=== PATIENT | male | born 1980 | race Two or more races ===

== ENCOUNTER 2019-07-18 03:05 | Inpatient (IN) | payer MEDICAID ==
[~2019-07-18] VITALS: Ht 177.8 cm; Wt 102.4 kg
[2019-07-18] MEDS ORDERED: LORazepam 2 MG/ML VIAL IVP ONE (03:45)
[2019-07-18] MEDS ORDERED: SODIUM CHLORIDE 0.9% 1,000 ML IV ONE ×3 (03:45→06:00)
[2019-07-18] MEDS ORDERED: ETOMIDATE 2 MG/ML 10 ML VIAL IVP ONE (04:00)
[2019-07-18] MEDS ORDERED: SUCCINYLCHOLINE CHLORIDE 20 MG/ML 10 ML VIAL IVP ONE (04:00)
[2019-07-18] MEDS ORDERED: PROPOFOL 1000 MG/ISO-OSM 100 ML IV PRN (04:14)
[2019-07-18 04:18] LABS: BASOPHILS % (AUTO) 0.6 % (0.0-2.0); EOSINOPHILS % (AUTO) 1.2 % (1.0-6.0); HEMATOCRIT 53.1 % (41-53); HEMOGLOBIN 17.1 g/dL (13.5-17.5); LYMPHOCYTES # (AUTO) 8.5 K/uL (1.0-4.8); LYMPHOCYTES % (AUTO) 56.5 % (22.0-44.0); MEAN CORPUSCULAR HEMOGLOBIN 32.3 pg (26.0-34.0); MEAN CORPUSCULAR HGB CONC 32.3 G/dL (31.0-37.0); MEAN CORPUSCULAR VOLUME 100 fL (80-100); MONOCYTES # (AUTO) 0.4 K/uL (0.1-1.0); MONOCYTES % (AUTO) 2.3 % (2.0-9.0); NEUTROPHILS # (AUTO) 5.9 K/uL (1.8-7.7); NEUTROPHILS % (AUTO) 39.4 % (40.0-70.0); PLATELET COUNT (AUTO) 270 K/uL (150-450); RED BLOOD CELL COUNT(AUTO) 5.31 MIL/uL (4.50-5.90); RED CELL DISTRIBUTION WIDTH 14.8 % (11.5-14.5)
[2019-07-18 04:56] LABS: APPEARANCE,URINE CLEAR (CLEAR); BILIRUBIN,URINE NEGATIVE (NEGATIVE); GLUCOSE, URINE (UA) NEGATIVE (NEGATIVE); KETONES,URINE NEGATIVE (NEGATIVE); LEUKOCYTE ESTERASE ,URINE NEGATIVE (NEGATIVE); NITRATE,URINE NEGATIVE (NEGATIVE); OCCULT BLOOD,URINE TRACE (NEGATIVE); PH,URINE 5.5 (5.0-8.0); PROTEIN,URINE SEE CONFIRM (NEGATIVE)
[2019-07-18 05:02] LABS: AMPHET/METH SCREEN,URINE POSITIVE (NEGATIVE); BARBITURATE SCREEN, URINE NEGATIVE (NEGATIVE); BENZODIAZEPINES SCREEN,URINE NEGATIVE (NEGATIVE); CANNABINOID SCREEN,URINE NEGATIVE (NEGATIVE); COCAINE SCREEN,URINE NEGATIVE (NEGATIVE); METHADONE SCREEN, URINE NEGATIVE (NEGATIVE); OPIATE SCREEN,URINE POSITIVE (NEGATIVE)
[2019-07-18 05:05] LABS: PHENCYCLIDINE SCREEN,URINE NEGATIVE (NEGATIVE)
[2019-07-18] MEDS ORDERED: ONDANSETRON HCL 4 MG TABLET PO ONE (05:15)
[2019-07-18] MEDS ORDERED: FAMOTIDINE 20 MG TABLET PO ONE (05:15)
[2019-07-18 05:18] LABS: ABG A-A DIFF O2 511.9 mmHg (10-20.0); ABG CARBOXYHEMOGLOBIN 1.6 % (0.0-1.5); ABG HCO3 18.2 mmol/L (22.0-26.0); ABG METHEMOGLOBIN 0.4 % (0.0-1.5); ABG OXYGEN CONTENT 24.9 mL/dL (15.0-23.0); ABG OXYGEN SATURATION 98.2 % (95.0-98.0); ABG OXYHEMOGLOBIN 96.2 % (94.0-100.0); ABG PCO2 58 mmHg (35-45); ABG PH 7.181 (7.350-7.450); ABG TOTAL HEMOGLOBIN 18.3 G/dL (12.0-18.0); PO2, ARTERIAL BG 142.8 mmHg (92.0-100.0); SITE, BLOOD GAS RT RADIAL; SOURCE, BLOOD GAS ARTERIAL; TEMPERATURE, FAHRENHEIT, BG 98.6 FAHREN (96.0-98.6)
[2019-07-18 05:19] LABS: O2 DEVICE,BLOOD GAS VENTILATOR (ROOM AIR); PEEP,BG 5 cm H2O
[2019-07-18 05:23] LABS: SULFOSALICYLIC ACID,URINE Trace (Negative)
[2019-07-18 05:25] LABS: BACTERIA,URINE Few /HPF (None Seen); RBC,URINE 0-2 /HPF (0-2); SQUAMOUS EPITHELIAL CELL,UR Few /LPF (None Seen); WBC,URINE 0-2 /HPF (0-5)
[2019-07-18 06:12] LABS: INR 1.1 (0.9-1.1)
[2019-07-18 06:19] LABS: ANION GAP 6 mmol/L (8-16); CALCIUM, TOTAL 8.7 mg/dL (8.8-10.5); CARBON DIOXIDE 30 mmol/L (22-29); CHLORIDE 103 mmol/L (98-107); CREATININE 1.64 mg/dL (0.60-1.30); GLOMERULAR FILTR. RATE CALC 48 mL/min (>60); GLUCOSE,RANDOM 93 mg/dL (70-110); POTASSIUM 5.3 mmol/L (3.5-5.1); SODIUM SERUM 139 mmol/L (136-145); UREA NITROGEN, BLOOD 27 mg/dL (7-18)
[2019-07-18 06:39] LABS: ALANINE AMINOTRANSFERASE 215 U/L (12-78); ALBUMIN 4.1 g/dL (3.4-5.0); ALKALINE PHOSPHATASE 81 U/L (46-116); ASPARTATE AMINOTRANSFERASE 145 U/L (15-37); BILIRUBIN,TOTAL 0.9 mg/dL (0.1-1.0); CREATINE KINASE, TOTAL ONLY 433 U/L (39-308); LIPASE 39 U/L (73-393); TOTAL PROTEIN, SERUM 8.2 g/dL (6.4-8.2)
[2019-07-18 06:41] LABS: ACETAMINOPHEN < 2 mcg/mL (10-30)
[2019-07-18 08:30] VITALS: BP 85/58
[2019-07-18 09:00] VITALS: BP 91/64
[2019-07-18] MEDS ORDERED: NOREPINEPHRINE 4 MG/D5%-WATER 250 ML IV PRN (09:00)
[2019-07-18] MEDS: SODIUM CHLORIDE 0.9% 1,000 ML IV SCH ×2 (09:56→21:15)
[2019-07-18] MEDS: OXYGEN THERAPY IH SCH ×2 (09:56→21:16)
[2019-07-18 10:36] LABS: SALICYLATE 0.7 mg/dL (2.8-20.0)
[2019-07-18 10:41] LABS: LACTIC ACID 1.2 mmol/L (0.4-2.0)
[2019-07-18] MEDS: FentaNYL CITRATE PF 500 MCG in DEXTROSE 5%-WATER 90 ML IV PRN ×3 (10:57→22:40)
[2019-07-18] MEDS ORDERED: ZOLPIDEM TARTRATE 5 MG TABLET PO PRN (11:30)
[2019-07-18] MEDS ORDERED: ONDANSETRON HCL 4 MG/2 ML VIAL IVP PRN (11:30)
[2019-07-18] MEDS ORDERED: BISACODYL 10 MG RECTAL RECTAL SUPPOSITORY PR PRN (11:30)
[2019-07-18] MEDS ORDERED: MAGNESIUM HYDROXIDE SUSPENSION 30 ML UDCUP PO PRN (11:30)
[2019-07-18] MEDS ORDERED: SODIUM BICARBONATE 50 MEQ/50 ML VIAL IVP ONE (11:45)
[2019-07-18 12:00] VITALS: BP 109/39
[2019-07-18] MEDS ORDERED: GLYCOPYRROLATE 0.2 MG/ML VIAL ONE (12:00)
[2019-07-18] MEDS ORDERED: LIDOCAINE 2% 5 ML JELLY ONE (12:00)
[2019-07-18] MEDS ORDERED: SODIUM BICARBONATE [ADULT] 8.4% 50 MEQ/50 ML SYRINGE IVP ONE ×2 (12:08→12:15)
[2019-07-18] MEDS: PROPOFOL 1000 MG/ISO-OSM 100 ML IV PRN ×6 (12:42→23:01)
[2019-07-18 13:41] LABS: ABG A-A DIFF O2 542.1 mmHg (10-20.0); ABG CARBOXYHEMOGLOBIN 0.8 % (0.0-1.5); ABG HCO3 19.1 mmol/L (22.0-26.0); ABG OXYGEN CONTENT 22.7 mL/dL (15.0-23.0); ABG OXYGEN SATURATION 96.8 % (95.0-98.0); ABG PH 7.152 (7.350-7.450); ABG TOTAL HEMOGLOBIN 16.8 G/dL (12.0-18.0); PO2, ARTERIAL BG 99.1 mmHg (92.0-100.0); SOURCE, BLOOD GAS ARTERIAL; TEMPERATURE, FAHRENHEIT, BG 100.1 FAHREN (96.0-98.6)
[2019-07-18 13:42] LABS: ABG PCO2 70 mmHg (35-45); O2 DEVICE,BLOOD GAS VENTILATOR (ROOM AIR); PEEP,BG 5 cm H2O; SITE, BLOOD GAS RT RADIAL; VT, ABG 550 ml
[2019-07-18] MEDS ORDERED: SODIUM CHLORIDE 0.9% 500 ML IV ONE (14:58)
[2019-07-18] MEDS: MIDAZOLAM HCL 100 MG in DEXTROSE 5%-WATER 180 ML IV PRN ×3 (15:45→16:52)
[2019-07-18 16:00] VITALS: BP 122/37
[2019-07-18] MEDS ORDERED: SUCCINYLCHOLINE CHLORIDE 20 MG/ML 10 ML VIAL IM ONE (16:39)
[2019-07-18] MEDS ORDERED: ETOMIDATE 2 MG/ML 10 ML VIAL IV ONE (16:39)
[2019-07-18] MEDS: PIPERACILLIN/TAZO 3.375 GM/D5W 50 ML IV SCH ×2 (16:43→21:15)
[2019-07-18] MEDS: HEPARIN SODIUM,PORCINE 5,000 UNITS/ML VIAL SQ SCH ×2 (16:45→23:01)
[2019-07-18 17:36] LABS: ABG A-A DIFF O2 577.7 mmHg (10-20.0); ABG BASE EXCESS -5.4 mmol/L (-2.0-3.0); ABG CARBOXYHEMOGLOBIN 0.9 % (0.0-1.5); ABG METHEMOGLOBIN 0.3 % (0.0-1.5); ABG OXYGEN CONTENT 21.3 mL/dL (15.0-23.0); ABG OXYGEN SATURATION 93.6 % (95.0-98.0); ABG OXYHEMOGLOBIN 92.5 % (94.0-100.0); ABG PH 7.174 (7.350-7.450); ABG TOTAL HEMOGLOBIN 16.4 G/dL (12.0-18.0); SOURCE, BLOOD GAS ARTERIAL; TEMPERATURE, FAHRENHEIT, BG 99.3 FAHREN (96.0-98.6)
[2019-07-18 17:37] LABS: ABG PCO2 64 mmHg (35-45); O2 DEVICE,BLOOD GAS VENTILATOR (ROOM AIR); PEEP,BG 5 cm H2O; SITE, BLOOD GAS ARTERIAL LINE; VT, ABG 550 ml
[2019-07-18 17:38] LABS: SPONTANEOUS VT, BG 581 ml
[2019-07-18] MEDS ORDERED: SODIUM CHLORIDE 0.9% 250 ML IV ONE (18:00)
[2019-07-18 20:00] VITALS: BP 122/39
[2019-07-18] MEDS: DOCUSATE SODIUM 100 MG CAPSULE PO SCH (21:15)
[2019-07-18] MEDS: ACETAMINOPHEN 325 MG TABLET PO PRN (23:02)
[2019-07-19] VITALS: BP 107/39
[2019-07-19] MEDS: PROPOFOL 1000 MG/ISO-OSM 100 ML IV PRN ×5 (02:43→23:00)
[2019-07-19] MEDS: PIPERACILLIN/TAZO 3.375 GM/D5W 50 ML IV SCH ×4 (03:26→20:24)
[2019-07-19 04:00] VITALS: BP 109/44
[2019-07-19] MEDS: SODIUM CHLORIDE 0.9% 1,000 ML IV SCH (05:54)
[2019-07-19 06:03] LABS: CALCIUM, TOTAL 7.6 mg/dL (8.8-10.5); CREATININE 1.89 mg/dL (0.60-1.30); POTASSIUM 5.2 mmol/L (3.5-5.1)
[2019-07-19 06:26] LABS: BASOPHILS % (AUTO) 0.1 % (0.0-2.0); EOSINOPHILS % (AUTO) 0 % (1.0-6.0); HEMATOCRIT 50.1 % (41-53); HEMOGLOBIN 15.8 g/dL (13.5-17.5); LYMPHOCYTES # (AUTO) 0.8 K/uL (1.0-4.8); LYMPHOCYTES % (AUTO) 8.3 % (22.0-44.0); MEAN CORPUSCULAR HEMOGLOBIN 31.9 pg (26.0-34.0); MEAN CORPUSCULAR HGB CONC 31.6 G/dL (31.0-37.0); MEAN CORPUSCULAR VOLUME 101 fL (80-100); MONOCYTES # (AUTO) 0.7 K/uL (0.1-1.0); MONOCYTES % (AUTO) 7.6 % (2.0-9.0); PLATELET COUNT (AUTO) 187 K/uL (150-450); RED BLOOD CELL COUNT(AUTO) 4.96 MIL/uL (4.50-5.90); RED CELL DISTRIBUTION WIDTH 14.7 % (11.5-14.5)
[2019-07-19] MEDS: FentaNYL CITRATE PF 500 MCG in DEXTROSE 5%-WATER 90 ML IV PRN ×2 (07:06→19:29)
[2019-07-19 08:00] VITALS: BP 131/55
[2019-07-19] MEDS: HEPARIN SODIUM,PORCINE 5,000 UNITS/ML VIAL SQ SCH ×3 (08:33→23:01)
[2019-07-19] MEDS: PANTOPRAZOLE SODIUM 40 MG DR TABLET PO SCH (08:34)
[2019-07-19] MEDS: ACETAMINOPHEN 325 MG TABLET PO PRN ×3 (08:34→21:24)
[2019-07-19] MEDS: DOCUSATE SODIUM 100 MG CAPSULE PO SCH ×2 (08:34→20:24)
[2019-07-19] MEDS: OXYGEN THERAPY IH SCH ×2 (08:36→20:24)
[2019-07-19 11:15] LABS: ABG A-A DIFF O2 454.1 mmHg (10-20.0); ABG BASE EXCESS -3.1 mmol/L (-2.0-3.0); ABG HCO3 20.3 mmol/L (22.0-26.0); ABG METHEMOGLOBIN 0.3 % (0.0-1.5); ABG OXYGEN CONTENT 21.6 mL/dL (15.0-23.0); ABG OXYGEN SATURATION 97.7 % (95.0-98.0); ABG OXYHEMOGLOBIN 96.4 % (94.0-100.0); ABG TOTAL HEMOGLOBIN 15.9 G/dL (12.0-18.0); PO2, ARTERIAL BG 106.7 mmHg (92.0-100.0); SOURCE, BLOOD GAS ARTERIAL; TEMPERATURE, FAHRENHEIT, BG 100.1 FAHREN (96.0-98.6)
[2019-07-19] MEDS ORDERED: PROPOFOL 1000 MG/ISO-OSM 100 ML IV PRN (11:15)
[2019-07-19 11:18] LABS: ABG PH 7.146 (7.350-7.450)
[2019-07-19 11:19] LABS: ABG PCO2 77 mmHg (35-45); O2 DEVICE,BLOOD GAS VENTILATOR (ROOM AIR); PEEP,BG 10 cm H2O; SITE, BLOOD GAS ARTLINE; VT, ABG 500 ml
[2019-07-19 12:00] VITALS: BP 156/60
[2019-07-19 12:30] LABS: HIV 1-2 SCREEN 4TH GEN W/RFLX Non Reactive (Non Reactive)
[2019-07-19] MEDS ORDERED: SODIUM CHLORIDE 0.9% 1,000 ML IV ONE (12:45)
[2019-07-19 14:35] LABS: ABG A-A DIFF O2 345.2 mmHg (10-20.0); ABG BASE EXCESS -1.3 mmol/L (-2.0-3.0); ABG HCO3 22.6 mmol/L (22.0-26.0); ABG METHEMOGLOBIN 0.3 % (0.0-1.5); ABG OXYGEN CONTENT 20.8 mL/dL (15.0-23.0); ABG OXYGEN SATURATION 97.2 % (95.0-98.0); ABG OXYHEMOGLOBIN 95.9 % (94.0-100.0); ABG PCO2 58 mmHg (35-45); ABG TOTAL HEMOGLOBIN 15.4 G/dL (12.0-18.0); PO2, ARTERIAL BG 90.5 mmHg (92.0-100.0); SOURCE, BLOOD GAS ARTERIAL; TEMPERATURE, FAHRENHEIT, BG 100.1 FAHREN (96.0-98.6)
[2019-07-19 15:58] LABS: ABG PH 7.268 (7.350-7.450); O2 DEVICE,BLOOD GAS VENTILATOR (ROOM AIR); SITE, BLOOD GAS ART LINE
[2019-07-19 15:59] LABS: PEEP,BG 10 cm H2O; VT, ABG 550 ml
[2019-07-19 16:00] VITALS: BP 165/71
[2019-07-19] MEDS ORDERED: DOPamine HCL/D5W 400 MG/250 ML IV BAG IV ONE (16:32)
[2019-07-19] MEDS ORDERED: NALOXONE HCL 1 MG/ML 2 ML SYG IM ONE (16:32)
[2019-07-19] MEDS ORDERED: EPINEPHrine 1:10,000 [1 MG/10 ML] SYRINGE IVP ONE (16:32)
[2019-07-19] MEDS ORDERED: SODIUM BICARBONATE [ADULT] 8.4% 50 MEQ/50 ML SYRINGE IVP ONE (16:32)
[2019-07-19 20:00] VITALS: BP 109/49
[2019-07-19] MEDS ORDERED: SODIUM CHLORIDE 0.9% 500 ML IV ONE (22:57)
[2019-07-20] VITALS: BP 138/59
[2019-07-20] MEDS: PROPOFOL 1000 MG/ISO-OSM 100 ML IV PRN ×6 (02:06→20:44)
[2019-07-20] MEDS: ACETAMINOPHEN 325 MG TABLET PO PRN ×3 (02:13→22:36)
[2019-07-20] MEDS: PIPERACILLIN/TAZO 3.375 GM/D5W 50 ML IV SCH ×4 (02:13→20:44)
[2019-07-20 04:00] VITALS: BP 112/59
[2019-07-20] MEDS: FentaNYL CITRATE PF 500 MCG in DEXTROSE 5%-WATER 90 ML IV PRN ×2 (05:06→15:30)
[2019-07-20 05:22] LABS: BASOPHILS % (AUTO) 0.2 % (0.0-2.0); EOSINOPHILS % (AUTO) 0.1 % (1.0-6.0); HEMATOCRIT 43.2 % (41-53); HEMOGLOBIN 14.1 g/dL (13.5-17.5); LYMPHOCYTES # (AUTO) 1.1 K/uL (1.0-4.8); LYMPHOCYTES % (AUTO) 12.4 % (22.0-44.0); MEAN CORPUSCULAR HGB CONC 32.6 G/dL (31.0-37.0); MEAN CORPUSCULAR VOLUME 98 fL (80-100); MONOCYTES # (AUTO) 0.4 K/uL (0.1-1.0); MONOCYTES % (AUTO) 4.5 % (2.0-9.0); NEUTROPHILS # (AUTO) 7.1 K/uL (1.8-7.7); NEUTROPHILS % (AUTO) 82.8 % (40.0-70.0); PLATELET COUNT (AUTO) 152 K/uL (150-450); RED BLOOD CELL COUNT(AUTO) 4.39 MIL/uL (4.50-5.90)
[2019-07-20 05:26] LABS: ANION GAP 4 mmol/L (8-16); CARBON DIOXIDE 31 mmol/L (22-29); CHLORIDE 106 mmol/L (98-107); CREATININE 1.26 mg/dL (0.60-1.30); GLUCOSE,RANDOM 141 mg/dL (70-110); POTASSIUM 3.5 mmol/L (3.5-5.1); SODIUM SERUM 141 mmol/L (136-145); UREA NITROGEN, BLOOD 32 mg/dL (7-18)
[2019-07-20 05:27] LABS: CALCIUM, TOTAL 8.2 mg/dL (8.8-10.5); GLOMERULAR FILTR. RATE CALC > 60 mL/min (>60)
[2019-07-20 08:00] VITALS: BP 114/63
[2019-07-20] MEDS: OXYGEN THERAPY IH SCH ×2 (08:15→20:45)
[2019-07-20] MEDS: HEPARIN SODIUM,PORCINE 5,000 UNITS/ML VIAL SQ SCH ×2 (08:55→15:54)
[2019-07-20] MEDS: DOCUSATE SODIUM 100 MG CAPSULE PO SCH ×2 (08:56→20:44)
[2019-07-20] MEDS: PANTOPRAZOLE SODIUM 40 MG DR TABLET PO SCH (08:56)
[2019-07-20 10:38] LABS: ABG A-A DIFF O2 178.2 mmHg (10-20.0); ABG BASE EXCESS 6.9 mmol/L (-2.0-3.0); ABG CARBOXYHEMOGLOBIN 0.6 % (0.0-1.5); ABG HCO3 30.1 mmol/L (22.0-26.0); ABG METHEMOGLOBIN 0.3 % (0.0-1.5); ABG OXYGEN CONTENT 19.1 mL/dL (15.0-23.0); ABG OXYGEN SATURATION 97.2 % (95.0-98.0); ABG OXYHEMOGLOBIN 96.3 % (94.0-100.0); ABG PCO2 45 mmHg (35-45); ABG PH 7.452 (7.350-7.450); ABG TOTAL HEMOGLOBIN 14.1 G/dL (12.0-18.0); PO2, ARTERIAL BG 89.9 mmHg (92.0-100.0); SOURCE, BLOOD GAS ARTERIAL; TEMPERATURE, FAHRENHEIT, BG 100.6 FAHREN (96.0-98.6)
[2019-07-20 10:57] LABS: O2 DEVICE,BLOOD GAS VENTILATOR (ROOM AIR); PEEP,BG 10 cm H2O; SITE, BLOOD GAS A LINE; VT, ABG 550 ml
[2019-07-20 10:58] LABS: SPONTANEOUS VT, BG 531 ml
[2019-07-20 12:00] VITALS: BP 113/57
[2019-07-20] MEDS: SODIUM CHLORIDE 0.9% 1,000 ML IV SCH (15:57)
[2019-07-20 16:00] VITALS: BP 129/56
[2019-07-20] MEDS: LEVOFLOXACIN 750 MG/D5% WATER 150 ML IV SCH (17:21)
[2019-07-20 17:42] LABS: ALANINE AMINOTRANSFERASE 124 U/L (12-78); ALBUMIN 2.5 g/dL (3.4-5.0); ALKALINE PHOSPHATASE 55 U/L (46-116); ASPARTATE AMINOTRANSFERASE 121 U/L (15-37); BILIRUBIN,TOTAL 1.1 mg/dL (0.1-1.0); TOTAL PROTEIN, SERUM 6.1 g/dL (6.4-8.2)
[2019-07-20] MEDS: HYPROMELLOSE 0.5% 15 ML OPHTHALMIC SOLUTION OU SCH (19:45)
[2019-07-20 20:00] VITALS: BP 97/54
[2019-07-20] MEDS ORDERED: SODIUM CHLORIDE 0.9% 250 ML IV ONE (20:42)
[2019-07-21] VITALS: BP 115/58
[2019-07-21] MEDS: HEPARIN SODIUM,PORCINE 5,000 UNITS/ML VIAL SQ SCH ×3 (00:10→16:28)
[2019-07-21] MEDS: HYPROMELLOSE 0.5% 15 ML OPHTHALMIC SOLUTION OU SCH ×4 (00:11→18:28)
[2019-07-21 01:09] LABS: INFLUENZA TYPE A NEGATIVE FOR TYPE A (NEGATIVE); INFLUENZA TYPE B NEGATIVE FOR TYPE B (NEGATIVE)
[2019-07-21] MEDS: PROPOFOL 1000 MG/ISO-OSM 100 ML IV PRN ×6 (02:39→21:34)
[2019-07-21] MEDS: FentaNYL CITRATE PF 500 MCG in DEXTROSE 5%-WATER 90 ML IV PRN ×3 (02:40→22:11)
[2019-07-21] MEDS: PIPERACILLIN/TAZO 3.375 GM/D5W 50 ML IV SCH ×2 (02:40→09:08)
[2019-07-21 04:00] VITALS: BP 104/51
[2019-07-21] MEDS: SODIUM CHLORIDE 0.9% 1,000 ML IV SCH ×2 (04:50→18:28)
[2019-07-21 05:18] LABS: HEMATOCRIT 40.4 % (41-53); HEMOGLOBIN 13.4 g/dL (13.5-17.5); MEAN CORPUSCULAR HEMOGLOBIN 32.4 pg (26.0-34.0); MEAN CORPUSCULAR HGB CONC 33.1 G/dL (31.0-37.0); MEAN CORPUSCULAR VOLUME 98 fL (80-100); PLATELET COUNT (AUTO) 166 K/uL (150-450); RED BLOOD CELL COUNT(AUTO) 4.14 MIL/uL (4.50-5.90)
[2019-07-21 05:28] LABS: ANION GAP 7 mmol/L (8-16); CARBON DIOXIDE 31 mmol/L (22-29); CHLORIDE 106 mmol/L (98-107); CREATININE 0.97 mg/dL (0.60-1.30); GLOMERULAR FILTR. RATE CALC > 60 mL/min (>60); GLUCOSE,RANDOM 119 mg/dL (70-110); POTASSIUM 3.2 mmol/L (3.5-5.1); SODIUM SERUM 144 mmol/L (136-145); UREA NITROGEN, BLOOD 28 mg/dL (7-18)
[2019-07-21 06:25] LABS: BAND NEUTROPHILS % (MANUAL) 15 % (0-5); EOSINOPHILS % (MANUAL) 1 % (1-6); LYMPHOCYTES % (MANUAL) 18 % (22-44); MONOCYTES % (MANUAL) 2 % (2-9); SEGMENTED NEUTROPHILS % 64 % (40-70)
[2019-07-21 08:00] VITALS: BP 115/57
[2019-07-21] MEDS: DOCUSATE SODIUM 100 MG CAPSULE PO SCH ×2 (09:08→20:45)
[2019-07-21] MEDS: PANTOPRAZOLE SODIUM 40 MG DR TABLET PO SCH (09:08)
[2019-07-21] MEDS: POTASSIUM CHLORIDE 20 MEQ ER TABLET PO PRN ×2 (09:17→21:56)
[2019-07-21 12:00] VITALS: BP 103/57
[2019-07-21] MEDS: OXYGEN THERAPY IH SCH ×2 (12:21→20:44)
[2019-07-21] MEDS: CEFEPIME HCL 2 GM in DEXTROSE 5%-WATER 50 ML IV SCH ×2 (14:34→21:56)
[2019-07-21 16:00] VITALS: BP 108/54
[2019-07-21] MEDS: MetroNIDAZOLE 500 MG TABLET PO SCH (16:28)
[2019-07-21] MEDS: LEVOFLOXACIN 750 MG/D5% WATER 150 ML IV SCH (16:43)
[2019-07-21 20:00] VITALS: BP 105/57
[2019-07-21] MEDS: ACETAMINOPHEN 325 MG TABLET PO PRN (20:58)
[2019-07-22] VITALS: BP 105/56
[2019-07-22] MEDS: HYPROMELLOSE 0.5% 15 ML OPHTHALMIC SOLUTION OU SCH ×4 (00:14→16:55)
[2019-07-22] MEDS: HEPARIN SODIUM,PORCINE 5,000 UNITS/ML VIAL SQ SCH ×3 (00:15→16:11)
[2019-07-22] MEDS: MetroNIDAZOLE 500 MG TABLET PO SCH ×3 (00:15→16:08)
[2019-07-22] MEDS ORDERED: SODIUM CHLORIDE 0.9% 250 ML IV ONE ×2 (00:19→18:46)
[2019-07-22] MEDS: PROPOFOL 1000 MG/ISO-OSM 100 ML IV PRN ×8 (00:47→22:11)
[2019-07-22] MEDS ORDERED: SODIUM CHLORIDE 0.9% 500 ML IV ONE (02:10)
[2019-07-22] MEDS: FentaNYL CITRATE PF 500 MCG in DEXTROSE 5%-WATER 90 ML IV PRN ×4 (02:58→21:36)
[2019-07-22 04:00] VITALS: BP 102/48
[2019-07-22 05:08] LABS: BASOPHILS % (AUTO) 0.5 % (0.0-2.0); EOSINOPHILS % (AUTO) 4.1 % (1.0-6.0); HEMOGLOBIN 12.4 g/dL (13.5-17.5); LYMPHOCYTES # (AUTO) 1.7 K/uL (1.0-4.8); LYMPHOCYTES % (AUTO) 24.7 % (22.0-44.0); MEAN CORPUSCULAR HEMOGLOBIN 31.7 pg (26.0-34.0); MEAN CORPUSCULAR HGB CONC 32.7 G/dL (31.0-37.0); MEAN CORPUSCULAR VOLUME 97 fL (80-100); MONOCYTES # (AUTO) 0.7 K/uL (0.1-1.0); MONOCYTES % (AUTO) 10.2 % (2.0-9.0); NEUTROPHILS # (AUTO) 4.3 K/uL (1.8-7.7); NEUTROPHILS % (AUTO) 60.5 % (40.0-70.0); PLATELET COUNT (AUTO) 159 K/uL (150-450); RED BLOOD CELL COUNT(AUTO) 3.92 MIL/uL (4.50-5.90); RED CELL DISTRIBUTION WIDTH 14.3 % (11.5-14.5)
[2019-07-22 05:22] LABS: ANION GAP 7 mmol/L (8-16); CALCIUM, TOTAL 7.9 mg/dL (8.8-10.5); CARBON DIOXIDE 28 mmol/L (22-29); CHLORIDE 108 mmol/L (98-107); GLOMERULAR FILTR. RATE CALC > 60 mL/min (>60); GLUCOSE,RANDOM 115 mg/dL (70-110); POTASSIUM 3.4 mmol/L (3.5-5.1); SODIUM SERUM 143 mmol/L (136-145); UREA NITROGEN, BLOOD 24 mg/dL (7-18)
[2019-07-22] MEDS: CEFEPIME HCL 2 GM in DEXTROSE 5%-WATER 50 ML IV SCH ×3 (05:39→21:36)
[2019-07-22] MEDS: POTASSIUM CHLORIDE 20 MEQ ER TABLET PO PRN (06:26)
[2019-07-22] MEDS: SODIUM CHLORIDE 0.9% 1,000 ML IV SCH ×2 (06:56→18:54)
[2019-07-22 08:00] VITALS: BP 124/61
[2019-07-22] MEDS: DOCUSATE SODIUM 100 MG CAPSULE PO SCH ×2 (08:00→21:01)
[2019-07-22] MEDS: MULTIVITAMINS WITH MINERALS, THERAPEUTIC 15 ML UDCUP NG SCH (08:00)
[2019-07-22] MEDS: PANTOPRAZOLE SODIUM 40 MG DR TABLET PO SCH (08:01)
[2019-07-22] MEDS ORDERED: SODIUM CHLORIDE 0.9% 100 ML ONE (11:33)
[2019-07-22] MEDS ORDERED: IOVERSOL 350 MG/ML 150 ML VIAL ONE (11:33)
[2019-07-22] MEDS: OXYGEN THERAPY IH SCH ×2 (11:45→19:47)
[2019-07-22] MEDS: QUEtiapine FUMARATE 25 MG TABLET PO SCH ×2 (11:45→21:01)
[2019-07-22 12:00] VITALS: BP 121/58
[2019-07-22] MEDS: MIDAZOLAM HCL 100 MG in DEXTROSE 5%-WATER 180 ML IV PRN (15:46)
[2019-07-22 16:00] VITALS: BP 106/46
[2019-07-22] MEDS: LEVOFLOXACIN 750 MG/D5% WATER 150 ML IV SCH (16:55)
[2019-07-22 20:00] VITALS: BP 102/41
[2019-07-23] VITALS: BP 99/54
[2019-07-23] MEDS: HEPARIN SODIUM,PORCINE 5,000 UNITS/ML VIAL SQ SCH ×3 (00:20→16:19)
[2019-07-23] MEDS: MetroNIDAZOLE 500 MG TABLET PO SCH ×3 (00:20→16:19)
[2019-07-23] MEDS: HYPROMELLOSE 0.5% 15 ML OPHTHALMIC SOLUTION OU SCH ×4 (00:21→17:14)
[2019-07-23] MEDS: PROPOFOL 1000 MG/ISO-OSM 100 ML IV PRN ×6 (01:29→21:22)
[2019-07-23] MEDS ORDERED: SODIUM CHLORIDE 0.9% 250 ML IV ONE (02:15)
[2019-07-23] MEDS ORDERED: SODIUM CHLORIDE 0.9% 500 ML IV ONE ×2 (02:15→03:07)
[2019-07-23 04:00] VITALS: BP 116/51
[2019-07-23 05:45] LABS: HEMATOCRIT 39.2 % (41-53); HEMOGLOBIN 12.7 g/dL (13.5-17.5); MEAN CORPUSCULAR HEMOGLOBIN 31.5 pg (26.0-34.0); MEAN CORPUSCULAR HGB CONC 32.3 G/dL (31.0-37.0); MEAN CORPUSCULAR VOLUME 98 fL (80-100); PLATELET COUNT (AUTO) 166 K/uL (150-450); RED BLOOD CELL COUNT(AUTO) 4.02 MIL/uL (4.50-5.90); RED CELL DISTRIBUTION WIDTH 14.4 % (11.5-14.5)
[2019-07-23 05:52] LABS: MAGNESIUM 1.6 mg/dL (1.80-2.40)
[2019-07-23] MEDS: CEFEPIME HCL 2 GM in DEXTROSE 5%-WATER 50 ML IV SCH ×3 (06:38→22:49)
[2019-07-23 07:15] LABS: BAND NEUTROPHILS % (MANUAL) 11 % (0-5); EOSINOPHILS % (MANUAL) 3 % (1-6); LYMPHOCYTES % (MANUAL) 20 % (22-44); MONOCYTES % (MANUAL) 7 % (2-9); SEGMENTED NEUTROPHILS % 59 % (40-70)
[2019-07-23] MEDS ORDERED: MAGNESIUM SULFATE 4 GM/WATER 100 ML IV PRN (07:30)
[2019-07-23] MEDS ORDERED: MAGNESIUM SULFATE 2 GM/WATER 50 ML IV PRN (07:30)
[2019-07-23] MEDS: MULTIVITAMINS WITH MINERALS, THERAPEUTIC 15 ML UDCUP NG SCH (07:51)
[2019-07-23] MEDS: PANTOPRAZOLE SODIUM 40 MG DR TABLET PO SCH (07:51)
[2019-07-23] MEDS: DOCUSATE SODIUM 100 MG CAPSULE PO SCH ×2 (07:52→20:24)
[2019-07-23 08:00] VITALS: BP 144/55
[2019-07-23] MEDS: OXYGEN THERAPY IH SCH ×2 (08:00→20:27)
[2019-07-23] MEDS: QUEtiapine FUMARATE 25 MG TABLET PO SCH ×2 (08:04→20:27)
[2019-07-23] MEDS: SODIUM CHLORIDE 0.9% 1,000 ML IV SCH ×2 (08:28→22:50)
[2019-07-23 08:30] LABS: ABG A-A DIFF O2 182.4 mmHg (10-20.0); ABG BASE EXCESS -0.7 mmol/L (-2.0-3.0); ABG CARBOXYHEMOGLOBIN 0.7 % (0.0-1.5); ABG HCO3 23.8 mmol/L (22.0-26.0); ABG METHEMOGLOBIN 0.3 % (0.0-1.5); ABG OXYGEN CONTENT 18.3 mL/dL (15.0-23.0); ABG OXYGEN SATURATION 96.6 % (95.0-98.0); ABG OXYHEMOGLOBIN 95.6 % (94.0-100.0); ABG PCO2 43 mmHg (35-45); ABG PH 7.372 (7.350-7.450); ABG TOTAL HEMOGLOBIN 13.6 G/dL (12.0-18.0); PO2, ARTERIAL BG 88.8 mmHg (92.0-100.0); SOURCE, BLOOD GAS ARTERIAL; TEMPERATURE, FAHRENHEIT, BG 99.1 FAHREN (96.0-98.6)
[2019-07-23 08:34] LABS: O2 DEVICE,BLOOD GAS VENTILATOR (ROOM AIR); PEEP,BG 10 cm H2O; SITE, BLOOD GAS ARTERIAL LINE; VT, ABG 550 ml
[2019-07-23] MEDS ORDERED: POTASSIUM PHOS,M-BASIC-D-BASIC 20 MEQ in DEXTROSE 5%-WATER 100 ML IV ONE (11:45)
[2019-07-23 12:00] VITALS: BP 132/55
[2019-07-23] MEDS: FentaNYL CITRATE PF 500 MCG in DEXTROSE 5%-WATER 90 ML IV PRN (13:08)
[2019-07-23 16:00] VITALS: BP 129/61
[2019-07-23] MEDS: LEVOFLOXACIN 750 MG/D5% WATER 150 ML IV SCH (17:11)
[2019-07-23] MEDS ORDERED: AMINO ACIDS/PROTEIN HYDROLYS 30 ML TUBE PO SCH (17:30)
[2019-07-23 20:00] VITALS: BP 149/57
[2019-07-23] MEDS: MIDAZOLAM HCL 100 MG in DEXTROSE 5%-WATER 180 ML IV PRN (20:26)
[2019-07-23] MEDS: ACETAMINOPHEN 325 MG TABLET PO PRN (21:27)
[2019-07-23 23:50] LABS: APPEARANCE,URINE CLEAR (CLEAR); BILIRUBIN,URINE NEGATIVE (NEGATIVE); GLUCOSE, URINE (UA) NEGATIVE (NEGATIVE); KETONES,URINE NEGATIVE (NEGATIVE); LEUKOCYTE ESTERASE ,URINE NEGATIVE (NEGATIVE); NITRATE,URINE NEGATIVE (NEGATIVE); OCCULT BLOOD,URINE NEGATIVE (NEGATIVE); PROTEIN,URINE POS 1+ (NEGATIVE)
[2019-07-24] VITALS (7 sets, daily range): BP systolic 97–117; BP diastolic 55–70
[2019-07-24] MEDS: MetroNIDAZOLE 500 MG TABLET PO SCH ×3 (00:02→15:34)
[2019-07-24 00:03] LABS: BACTERIA,URINE None Seen /HPF (None Seen); SQUAMOUS EPITHELIAL CELL,UR None Seen /LPF (None Seen)
[2019-07-24] MEDS: HEPARIN SODIUM,PORCINE 5,000 UNITS/ML VIAL SQ SCH ×3 (00:05→15:34)
[2019-07-24] MEDS: HYPROMELLOSE 0.5% 15 ML OPHTHALMIC SOLUTION OU SCH ×5 (00:05→23:47)
[2019-07-24] MEDS: PROPOFOL 1000 MG/ISO-OSM 100 ML IV PRN ×8 (00:05→23:46)
[2019-07-24] MEDS ORDERED: SODIUM CHLORIDE 0.9% 250 ML IV ONE (04:30)
[2019-07-24 05:53] LABS: ALANINE AMINOTRANSFERASE 56 U/L (12-78); ALKALINE PHOSPHATASE 60 U/L (46-116); ANION GAP 8 mmol/L (8-16); ASPARTATE AMINOTRANSFERASE 63 U/L (15-37); BILIRUBIN,TOTAL 0.5 mg/dL (0.1-1.0); CALCIUM, TOTAL 7.9 mg/dL (8.8-10.5); CARBON DIOXIDE 27 mmol/L (22-29); CHLORIDE 107 mmol/L (98-107); CREATININE 0.69 mg/dL (0.60-1.30); GLOMERULAR FILTR. RATE CALC > 60 mL/min (>60); GLUCOSE,RANDOM 117 mg/dL (70-110); PHOSPHORUS 2.9 mg/dL (2.5-4.9); POTASSIUM 3.6 mmol/L (3.5-5.1); SODIUM SERUM 142 mmol/L (136-145); TOTAL PROTEIN, SERUM 5.4 g/dL (6.4-8.2); UREA NITROGEN, BLOOD 19 mg/dL (7-18)
[2019-07-24] MEDS: ACETAMINOPHEN 325 MG TABLET PO PRN ×4 (06:14→20:03)
[2019-07-24] MEDS: CEFEPIME HCL 2 GM in DEXTROSE 5%-WATER 50 ML IV SCH ×3 (06:15→22:01)
[2019-07-24] MEDS: FentaNYL CITRATE PF 500 MCG in DEXTROSE 5%-WATER 90 ML IV PRN ×3 (07:50→22:01)
[2019-07-24] MEDS: MULTIVITAMINS WITH MINERALS, THERAPEUTIC 15 ML UDCUP NG SCH (08:16)
[2019-07-24] MEDS: QUEtiapine FUMARATE 25 MG TABLET PO SCH ×2 (08:17→15:34)
[2019-07-24] MEDS: DOCUSATE SODIUM 100 MG CAPSULE PO SCH ×2 (08:17→20:03)
[2019-07-24] MEDS: PANTOPRAZOLE SODIUM 40 MG DR TABLET PO SCH (08:17)
[2019-07-24] MEDS: AMINO ACIDS/PROTEIN HYDROLYS 30 ML TUBE PO SCH ×2 (08:18→11:56)
[2019-07-24 10:14] LABS: ABG A-A DIFF O2 157.1 mmHg (10-20.0); ABG CARBOXYHEMOGLOBIN 0.8 % (0.0-1.5); ABG HCO3 23.3 mmol/L (22.0-26.0); ABG METHEMOGLOBIN 0.3 % (0.0-1.5); ABG OXYGEN CONTENT 17.6 mL/dL (15.0-23.0); ABG OXYGEN SATURATION 92.4 % (95.0-98.0); ABG OXYHEMOGLOBIN 91.4 % (94.0-100.0); ABG PCO2 48 mmHg (35-45); ABG PH 7.334 (7.350-7.450); ABG TOTAL HEMOGLOBIN 13.7 G/dL (12.0-18.0); PO2, ARTERIAL BG 71.8 mmHg (92.0-100.0); SOURCE, BLOOD GAS ARTERIAL; TEMPERATURE, FAHRENHEIT, BG 100.8 FAHREN (96.0-98.6)
[2019-07-24 10:20] LABS: O2 DEVICE,BLOOD GAS VENTILATOR (ROOM AIR); SITE, BLOOD GAS RT RADIAL; VT, ABG 550 ml
[2019-07-24 10:21] LABS: PEEP,BG 8 cm H2O
[2019-07-24] MEDS: SODIUM CHLORIDE 0.9% 1,000 ML IV SCH (11:56)
[2019-07-24] MEDS ORDERED: IPRATROPIUM BROMIDE 0.5 MG/2.5 ML NEB SOLUTION NEB ONE (12:31)
[2019-07-24] MEDS ORDERED: ALBUTEROL SULFATE 2.5 MG/0.5 ML NEB SOLUTION NEB ONE (12:31)
[2019-07-24] MEDS: ALBUTEROL SULFATE 2.5 MG/0.5 ML NEB SOLUTION NEB PRN (12:48)
[2019-07-24] MEDS: IPRATROPIUM BROMIDE 0.5 MG/2.5 ML NEB SOLUTION NEB PRN (12:48)
[2019-07-24] MEDS: LEVOFLOXACIN 750 MG/D5% WATER 150 ML IV SCH (17:06)
[2019-07-24] MEDS: MIDAZOLAM HCL 100 MG in DEXTROSE 5%-WATER 180 ML IV PRN (20:39)
[2019-07-25] VITALS: BP 113/68
[2019-07-25] MEDS: MetroNIDAZOLE 500 MG TABLET PO SCH ×3 (00:03→16:02)
[2019-07-25] MEDS: HEPARIN SODIUM,PORCINE 5,000 UNITS/ML VIAL SQ SCH ×3 (00:03→16:03)
[2019-07-25] MEDS: ACETAMINOPHEN 325 MG TABLET PO PRN ×6 (00:03→22:26)
[2019-07-25] MEDS: QUEtiapine FUMARATE 25 MG TABLET PO SCH (00:03)
[2019-07-25] MEDS: SODIUM CHLORIDE 0.9% 1,000 ML IV SCH ×2 (00:58→13:54)
[2019-07-25] MEDS: PROPOFOL 1000 MG/ISO-OSM 100 ML IV PRN ×7 (02:59→20:36)
[2019-07-25 04:00] VITALS: BP 184/84
[2019-07-25] MEDS: FentaNYL CITRATE PF 500 MCG in DEXTROSE 5%-WATER 90 ML IV PRN ×4 (04:13→21:36)
[2019-07-25] MEDS: LORazepam 2 MG/ML VIAL IVP PRN ×3 (04:49→20:36)
[2019-07-25 05:39] LABS: HEMATOCRIT 41.7 % (41-53); HEMOGLOBIN 13.6 g/dL (13.5-17.5); MEAN CORPUSCULAR HEMOGLOBIN 31.8 pg (26.0-34.0); MEAN CORPUSCULAR HGB CONC 32.6 G/dL (31.0-37.0); MEAN CORPUSCULAR VOLUME 98 fL (80-100); PLATELET COUNT (AUTO) 210 K/uL (150-450); RED BLOOD CELL COUNT(AUTO) 4.27 MIL/uL (4.50-5.90); RED CELL DISTRIBUTION WIDTH 14.5 % (11.5-14.5)
[2019-07-25 05:49] LABS: ANION GAP 6 mmol/L (8-16); CALCIUM, TOTAL 8.2 mg/dL (8.8-10.5); CARBON DIOXIDE 28 mmol/L (22-29); CHLORIDE 106 mmol/L (98-107); CREATININE 0.81 mg/dL (0.60-1.30); GLOMERULAR FILTR. RATE CALC > 60 mL/min (>60); GLUCOSE,RANDOM 114 mg/dL (70-110); POTASSIUM 3.5 mmol/L (3.5-5.1); SODIUM SERUM 140 mmol/L (136-145); UREA NITROGEN, BLOOD 19 mg/dL (7-18)
[2019-07-25] MEDS: CEFEPIME HCL 2 GM in DEXTROSE 5%-WATER 50 ML IV SCH ×2 (06:30→13:54)
[2019-07-25] MEDS: HYPROMELLOSE 0.5% 15 ML OPHTHALMIC SOLUTION OU SCH ×3 (06:31→17:26)
[2019-07-25 07:32] LABS: BAND NEUTROPHILS % (MANUAL) 6 % (0-5); EOSINOPHILS % (MANUAL) 2 % (1-6); LYMPHOCYTES % (MANUAL) 22 % (22-44); MONOCYTES % (MANUAL) 6 % (2-9); SEGMENTED NEUTROPHILS % 64 % (40-70)
[2019-07-25 08:00] VITALS: BP 113/63
[2019-07-25] MEDS: POTASSIUM CHL 10 MEQ/WATER 50 ML IV PRN ×3 (08:41→11:10)
[2019-07-25] MEDS: MULTIVITAMINS WITH MINERALS, THERAPEUTIC 15 ML UDCUP NG SCH (08:42)
[2019-07-25] MEDS: DOCUSATE SODIUM 100 MG CAPSULE PO SCH ×2 (08:42→20:35)
[2019-07-25] MEDS: PANTOPRAZOLE SODIUM 40 MG DR TABLET PO SCH (08:42)
[2019-07-25] MEDS: AMINO ACIDS/PROTEIN HYDROLYS 30 ML TUBE PO SCH ×2 (08:43→11:10)
[2019-07-25 10:46] LABS: ABG A-A DIFF O2 150.3 mmHg (10-20.0); ABG BASE EXCESS -0.5 mmol/L (-2.0-3.0); ABG CARBOXYHEMOGLOBIN 0.8 % (0.0-1.5); ABG HCO3 24.1 mmol/L (22.0-26.0); ABG METHEMOGLOBIN 0.3 % (0.0-1.5); ABG OXYGEN CONTENT 17.8 mL/dL (15.0-23.0); ABG OXYGEN SATURATION 94.4 % (95.0-98.0); ABG OXYHEMOGLOBIN 93.4 % (94.0-100.0); ABG PCO2 43 mmHg (35-45); ABG PH 7.373 (7.350-7.450); ABG TOTAL HEMOGLOBIN 13.5 G/dL (12.0-18.0); PO2, ARTERIAL BG 82.6 mmHg (92.0-100.0); SOURCE, BLOOD GAS ARTERIAL; TEMPERATURE, FAHRENHEIT, BG 102.3 FAHREN (96.0-98.6)
[2019-07-25 10:47] LABS: O2 DEVICE,BLOOD GAS VENTILATOR (ROOM AIR); SITE, BLOOD GAS RT RADIAL; VT, ABG 550 ml
[2019-07-25 10:48] LABS: PEEP,BG 8 cm H2O; SPONTANEOUS VT, BG 537 ml
[2019-07-25] MEDS: MIDAZOLAM HCL 100 MG in DEXTROSE 5%-WATER 180 ML IV PRN (11:54)
[2019-07-25 12:00] VITALS: BP 138/72
[2019-07-25 16:00] VITALS: BP 144/74
[2019-07-25] MEDS: QUEtiapine FUMARATE 100 MG TABLET PO SCH (16:03)
[2019-07-25] MEDS: LEVOFLOXACIN 750 MG/D5% WATER 150 ML IV SCH (16:03)
[2019-07-25] MEDS ORDERED: SODIUM CHLORIDE 0.9% 250 ML IV ONE (16:36)
[2019-07-25] MEDS ORDERED: IOVERSOL 350 MG/ML 100 ML VIAL ONE (18:46)
[2019-07-25] MEDS ORDERED: SODIUM CHLORIDE 0.9% 100 ML ONE (18:46)
[2019-07-25 20:00] VITALS: BP 94/58
[2019-07-25] MEDS ORDERED: CASPOFUNGIN ACETATE 70 MG in SODIUM CHLORIDE 0.9% 250 ML IV ONE (20:00)
[2019-07-25] MEDS: MEROPENEM 1 GM in SODIUM CHLORIDE 0.9% 100 ML IV SCH (20:25)
[2019-07-25] MEDS: VANCOMYCIN HCL 1.5 GM in DEXTROSE 5%-WATER 250 ML IV SCH (22:26)
[2019-07-26] VITALS: BP 135/67
[2019-07-26] MEDS: QUEtiapine FUMARATE 100 MG TABLET PO SCH ×3 (00:13→16:21)
[2019-07-26] MEDS: HYPROMELLOSE 0.5% 15 ML OPHTHALMIC SOLUTION OU SCH ×4 (00:13→18:04)
[2019-07-26] MEDS: HEPARIN SODIUM,PORCINE 5,000 UNITS/ML VIAL SQ SCH ×3 (00:13→16:21)
[2019-07-26] MEDS ORDERED: IOVERSOL 350 MG/ML 50 ML VIAL ONE (01:14)
[2019-07-26] MEDS: PROPOFOL 1000 MG/ISO-OSM 100 ML IV PRN ×6 (01:32→22:29)
[2019-07-26] MEDS: MIDAZOLAM HCL 100 MG in DEXTROSE 5%-WATER 180 ML IV PRN ×2 (02:21→20:40)
[2019-07-26] MEDS: FentaNYL CITRATE PF 500 MCG in DEXTROSE 5%-WATER 90 ML IV PRN ×5 (02:21→23:50)
[2019-07-26] MEDS: LORazepam 2 MG/ML VIAL IVP PRN (02:22)
[2019-07-26 04:00] VITALS: BP 141/76
[2019-07-26] MEDS: SODIUM CHLORIDE 0.9% 1,000 ML IV SCH ×2 (04:27→18:03)
[2019-07-26] MEDS: MEROPENEM 1 GM in SODIUM CHLORIDE 0.9% 100 ML IV SCH ×3 (04:27→20:10)
[2019-07-26] MEDS: VANCOMYCIN HCL 1.5 GM in DEXTROSE 5%-WATER 250 ML IV SCH ×3 (06:09→22:28)
[2019-07-26 06:42] LABS: HEMATOCRIT 38.3 % (41-53); HEMOGLOBIN 12.5 g/dL (13.5-17.5); MEAN CORPUSCULAR HEMOGLOBIN 31.4 pg (26.0-34.0); MEAN CORPUSCULAR HGB CONC 32.5 G/dL (31.0-37.0); MEAN CORPUSCULAR VOLUME 97 fL (80-100); PLATELET COUNT (AUTO) 307 K/uL (150-450); RED BLOOD CELL COUNT(AUTO) 3.97 MIL/uL (4.50-5.90); RED CELL DISTRIBUTION WIDTH 14.4 % (11.5-14.5)
[2019-07-26 06:48] LABS: ALANINE AMINOTRANSFERASE 48 U/L (12-78); ALBUMIN 1.8 g/dL (3.4-5.0); ALKALINE PHOSPHATASE 69 U/L (46-116); ANION GAP 9 mmol/L (8-16); ASPARTATE AMINOTRANSFERASE 46 U/L (15-37); BILIRUBIN,TOTAL 0.5 mg/dL (0.1-1.0); CALCIUM, TOTAL 8.5 mg/dL (8.8-10.5); CARBON DIOXIDE 25 mmol/L (22-29); CHLORIDE 104 mmol/L (98-107); CREATININE 0.77 mg/dL (0.60-1.30); GLOMERULAR FILTR. RATE CALC > 60 mL/min (>60); GLUCOSE,RANDOM 124 mg/dL (70-110); POTASSIUM 3.4 mmol/L (3.5-5.1); SODIUM SERUM 138 mmol/L (136-145); TOTAL PROTEIN, SERUM 6.6 g/dL (6.4-8.2); UREA NITROGEN, BLOOD 15 mg/dL (7-18)
[2019-07-26 07:12] LABS: APPEARANCE,URINE CLEAR (CLEAR); BILIRUBIN,URINE NEGATIVE (NEGATIVE); GLUCOSE, URINE (UA) NEGATIVE (NEGATIVE); KETONES,URINE TRACE mg/dL (NEGATIVE); LEUKOCYTE ESTERASE ,URINE NEGATIVE (NEGATIVE); NITRATE,URINE NEGATIVE (NEGATIVE); OCCULT BLOOD,URINE MODERATE (NEGATIVE); PH,URINE 5.5 (5.0-8.0); PROTEIN,URINE POS 1+ (NEGATIVE)
[2019-07-26 07:19] LABS: BACTERIA,URINE None Seen /HPF (None Seen); WBC,URINE None Seen /HPF (0-5)
[2019-07-26 08:00] VITALS: BP 120/85
[2019-07-26 08:15] LABS: BAND NEUTROPHILS % (MANUAL) 1 % (0-5); EOSINOPHILS % (MANUAL) 2 % (1-6); LYMPHOCYTES % (MANUAL) 13 % (22-44); MONOCYTES % (MANUAL) 4 % (2-9); SEGMENTED NEUTROPHILS % 80 % (40-70)
[2019-07-26 08:33] LABS: ABG A-A DIFF O2 162.5 mmHg (10-20.0); ABG BASE EXCESS -0.3 mmol/L (-2.0-3.0); ABG HCO3 24.4 mmol/L (22.0-26.0); ABG METHEMOGLOBIN 0.3 % (0.0-1.5); ABG OXYGEN CONTENT 18.1 mL/dL (15.0-23.0); ABG OXYGEN SATURATION 95.7 % (95.0-98.0); ABG OXYHEMOGLOBIN 94.5 % (94.0-100.0); ABG PCO2 39 mmHg (35-45); ABG PH 7.416 (7.350-7.450); ABG TOTAL HEMOGLOBIN 13.6 G/dL (12.0-18.0); O2 DEVICE,BLOOD GAS VENTILATOR (ROOM AIR); PO2, ARTERIAL BG 78.3 mmHg (92.0-100.0); SITE, BLOOD GAS RT RADIAL; SOURCE, BLOOD GAS ARTERIAL; TEMPERATURE, FAHRENHEIT, BG 98.6 FAHREN (96.0-98.6)
[2019-07-26 08:34] LABS: PEEP,BG 8 cm H2O; VT, ABG 550 ml
[2019-07-26] MEDS: MULTIVITAMINS WITH MINERALS, THERAPEUTIC 15 ML UDCUP NG SCH (09:15)
[2019-07-26] MEDS: PANTOPRAZOLE SODIUM 40 MG DR TABLET PO SCH (09:15)
[2019-07-26] MEDS: AMINO ACIDS/PROTEIN HYDROLYS 30 ML TUBE PO SCH ×2 (09:16→11:54)
[2019-07-26] MEDS: DOCUSATE SODIUM 100 MG CAPSULE PO SCH ×2 (09:16→21:12)
[2019-07-26] MEDS: METOCLOPRAMIDE HCL 5 MG/ML 2 ML VIAL IVP SCH ×2 (09:41→16:21)
[2019-07-26 12:00] VITALS: BP 132/77
[2019-07-26 16:00] VITALS: BP 141/92
[2019-07-26 20:00] VITALS: BP 126/77
[2019-07-26] MEDS: CASPOFUNGIN ACETATE 50 MG in SODIUM CHLORIDE 0.9% 250 ML IV SCH (21:20)
[2019-07-27] VITALS: BP 127/70
[2019-07-27] MEDS: LORazepam 2 MG/ML VIAL IVP PRN ×2 (00:19→21:08)
[2019-07-27] MEDS: HYPROMELLOSE 0.5% 15 ML OPHTHALMIC SOLUTION OU SCH ×4 (00:56→18:25)
[2019-07-27] MEDS: METOCLOPRAMIDE HCL 5 MG/ML 2 ML VIAL IVP SCH ×3 (00:56→09:31)
[2019-07-27] MEDS: HEPARIN SODIUM,PORCINE 5,000 UNITS/ML VIAL SQ SCH ×3 (00:57→16:45)
[2019-07-27] MEDS: PROPOFOL 1000 MG/ISO-OSM 100 ML IV PRN ×6 (01:10→21:32)
[2019-07-27] MEDS: QUEtiapine FUMARATE 100 MG TABLET PO SCH ×3 (03:23→16:45)
[2019-07-27] MEDS: MEROPENEM 1 GM in SODIUM CHLORIDE 0.9% 100 ML IV SCH (03:24)
[2019-07-27 04:00] VITALS: BP 119/71
[2019-07-27] MEDS: ACETAMINOPHEN 325 MG TABLET PO PRN (05:35)
[2019-07-27] MEDS: VANCOMYCIN HCL 1.5 GM in DEXTROSE 5%-WATER 250 ML IV SCH ×3 (05:35→18:21)
[2019-07-27 06:19] LABS: BASOPHILS % (AUTO) 0.2 % (0.0-2.0); EOSINOPHILS % (AUTO) 1.6 % (1.0-6.0); HEMATOCRIT 39.6 % (41-53); HEMOGLOBIN 12.9 g/dL (13.5-17.5); LYMPHOCYTES # (AUTO) 1.9 K/uL (1.0-4.8); LYMPHOCYTES % (AUTO) 13.1 % (22.0-44.0); MEAN CORPUSCULAR HEMOGLOBIN 31.4 pg (26.0-34.0); MEAN CORPUSCULAR HGB CONC 32.5 G/dL (31.0-37.0); MEAN CORPUSCULAR VOLUME 97 fL (80-100); MONOCYTES # (AUTO) 0.9 K/uL (0.1-1.0); MONOCYTES % (AUTO) 6.2 % (2.0-9.0); NEUTROPHILS # (AUTO) 11.4 K/uL (1.8-7.7); NEUTROPHILS % (AUTO) 78.9 % (40.0-70.0); PLATELET COUNT (AUTO) 386 K/uL (150-450); RED CELL DISTRIBUTION WIDTH 14.2 % (11.5-14.5)
[2019-07-27 06:32] LABS: ANION GAP 9 mmol/L (8-16); CALCIUM, TOTAL 8.6 mg/dL (8.8-10.5); CARBON DIOXIDE 27 mmol/L (22-29); CHLORIDE 102 mmol/L (98-107); GLOMERULAR FILTR. RATE CALC > 60 mL/min (>60); GLUCOSE,RANDOM 110 mg/dL (70-110); POTASSIUM 3.5 mmol/L (3.5-5.1); SODIUM SERUM 138 mmol/L (136-145); UREA NITROGEN, BLOOD 13 mg/dL (7-18)
[2019-07-27 08:00] VITALS: BP 120/73
[2019-07-27] MEDS: DOCUSATE SODIUM 100 MG CAPSULE PO SCH ×2 (08:05→20:15)
[2019-07-27] MEDS: SODIUM CHLORIDE 0.9% 1,000 ML IV SCH ×2 (08:05→20:15)
[2019-07-27] MEDS: MULTIVITAMINS WITH MINERALS, THERAPEUTIC 15 ML UDCUP NG SCH (08:06)
[2019-07-27] MEDS: PANTOPRAZOLE SODIUM 40 MG DR TABLET PO SCH (08:06)
[2019-07-27] MEDS: AMINO ACIDS/PROTEIN HYDROLYS 30 ML TUBE PO SCH ×2 (08:07→12:41)
[2019-07-27] MEDS: FentaNYL CITRATE PF 500 MCG in DEXTROSE 5%-WATER 90 ML IV PRN ×2 (09:14→16:45)
[2019-07-27] MEDS: MIDAZOLAM HCL 100 MG in DEXTROSE 5%-WATER 180 ML IV PRN (09:19)
[2019-07-27] MEDS ORDERED: CEFEPIME HCL 2 GM in DEXTROSE 5%-WATER 50 ML IV SCH (10:15)
[2019-07-27] MEDS: MetroNIDAZOLE 500 MG/NACL 100 ML IV SCH ×2 (11:31→12:41)
[2019-07-27 11:34] LABS: ABG A-A DIFF O2 170.9 mmHg (10-20.0); ABG BASE EXCESS 1.5 mmol/L (-2.0-3.0); ABG CARBOXYHEMOGLOBIN 0.7 % (0.0-1.5); ABG HCO3 25.8 mmol/L (22.0-26.0); ABG METHEMOGLOBIN 0.3 % (0.0-1.5); ABG OXYGEN CONTENT 17.6 mL/dL (15.0-23.0); ABG OXYGEN SATURATION 93.7 % (95.0-98.0); ABG OXYHEMOGLOBIN 92.8 % (94.0-100.0); ABG PCO2 39 mmHg (35-45); ABG PH 7.437 (7.350-7.450); ABG TOTAL HEMOGLOBIN 13.5 G/dL (12.0-18.0); PO2, ARTERIAL BG 69.1 mmHg (92.0-100.0); SOURCE, BLOOD GAS ARTERIAL; TEMPERATURE, FAHRENHEIT, BG 99.2 FAHREN (96.0-98.6)
[2019-07-27 11:39] LABS: O2 DEVICE,BLOOD GAS VENTILATOR (ROOM AIR); PEEP,BG 8 cm H2O; SITE, BLOOD GAS RT RADIAL; VT, ABG 550 ml
[2019-07-27 12:00] VITALS: BP 126/72
[2019-07-27] MEDS: CEFEPIME HCL 2 GM in DEXTROSE 5%-WATER 50 ML IV SCH ×2 (12:15→20:15)
[2019-07-27] MEDS ORDERED: SODIUM CHLORIDE 0.9% 250 ML IV ONE ×2 (15:31→21:34)
[2019-07-27 16:00] VITALS: BP 130/75
[2019-07-27 20:00] VITALS: BP 131/69
[2019-07-27] MEDS: CASPOFUNGIN ACETATE 50 MG in SODIUM CHLORIDE 0.9% 250 ML IV SCH (20:12)
[2019-07-28] VITALS: BP 114/70
[2019-07-28] MEDS: QUEtiapine FUMARATE 100 MG TABLET PO SCH ×3 (00:15→16:47)
[2019-07-28] MEDS: HYPROMELLOSE 0.5% 15 ML OPHTHALMIC SOLUTION OU SCH ×4 (00:15→18:23)
[2019-07-28] MEDS: HEPARIN SODIUM,PORCINE 5,000 UNITS/ML VIAL SQ SCH ×3 (00:15→16:47)
[2019-07-28] MEDS: METOCLOPRAMIDE HCL 5 MG/ML 2 ML VIAL IVP SCH ×3 (00:15→16:47)
[2019-07-28] MEDS: VANCOMYCIN HCL 1.5 GM in DEXTROSE 5%-WATER 250 ML IV SCH ×4 (00:37→18:22)
[2019-07-28] MEDS ORDERED: SODIUM CHLORIDE 0.9% 250 ML IV ONE (01:54)
[2019-07-28] MEDS: PROPOFOL 1000 MG/ISO-OSM 100 ML IV PRN ×5 (02:15→22:02)
[2019-07-28] MEDS: MetroNIDAZOLE 500 MG/NACL 100 ML IV SCH ×3 (02:16→17:39)
[2019-07-28] MEDS: CEFEPIME HCL 2 GM in DEXTROSE 5%-WATER 50 ML IV SCH ×3 (03:41→20:24)
[2019-07-28 04:00] VITALS: BP 115/69
[2019-07-28 04:56] LABS: BASOPHILS % (AUTO) 0.4 % (0.0-2.0); EOSINOPHILS % (AUTO) 2.5 % (1.0-6.0); HEMATOCRIT 39.9 % (41-53); HEMOGLOBIN 12.9 g/dL (13.5-17.5); LYMPHOCYTES % (AUTO) 17.2 % (22.0-44.0); MEAN CORPUSCULAR HEMOGLOBIN 31.3 pg (26.0-34.0); MEAN CORPUSCULAR HGB CONC 32.4 G/dL (31.0-37.0); MEAN CORPUSCULAR VOLUME 97 fL (80-100); MONOCYTES % (AUTO) 8.5 % (2.0-9.0); NEUTROPHILS # (AUTO) 8.3 K/uL (1.8-7.7); NEUTROPHILS % (AUTO) 71.4 % (40.0-70.0); PLATELET COUNT (AUTO) 466 K/uL (150-450); RED BLOOD CELL COUNT(AUTO) 4.13 MIL/uL (4.50-5.90); RED CELL DISTRIBUTION WIDTH 14.4 % (11.5-14.5)
[2019-07-28 05:22] LABS: ANION GAP 6 mmol/L (8-16); CALCIUM, TOTAL 8.6 mg/dL (8.8-10.5); CARBON DIOXIDE 28 mmol/L (22-29); CHLORIDE 103 mmol/L (98-107); CREATININE 0.58 mg/dL (0.60-1.30); GLOMERULAR FILTR. RATE CALC > 60 mL/min (>60); GLUCOSE,RANDOM 113 mg/dL (70-110); POTASSIUM 3.2 mmol/L (3.5-5.1); SODIUM SERUM 137 mmol/L (136-145); VANCOMYCIN,RANDOM 21.4 mcg/mL (25.0-50.0)
[2019-07-28 05:37] LABS: UREA NITROGEN, BLOOD 13 mg/dL (7-18)
[2019-07-28] MEDS: POTASSIUM CHL 10 MEQ/WATER 50 ML IV PRN ×3 (05:50→11:27)
[2019-07-28 08:00] VITALS: BP 122/71
[2019-07-28] MEDS: PANTOPRAZOLE SODIUM 40 MG DR TABLET PO SCH (08:05)
[2019-07-28] MEDS: MULTIVITAMINS WITH MINERALS, THERAPEUTIC 15 ML UDCUP NG SCH (08:05)
[2019-07-28] MEDS: AMINO ACIDS/PROTEIN HYDROLYS 30 ML TUBE PO SCH ×2 (08:06→13:52)
[2019-07-28] MEDS: DOCUSATE SODIUM 100 MG CAPSULE PO SCH ×2 (08:06→20:24)
[2019-07-28 08:29] LABS: ABG A-A DIFF O2 171.7 mmHg (10-20.0); ABG BASE EXCESS 2.7 mmol/L (-2.0-3.0); ABG HCO3 26.8 mmol/L (22.0-26.0); ABG METHEMOGLOBIN 0.3 % (0.0-1.5); ABG OXYGEN CONTENT 17.6 mL/dL (15.0-23.0); ABG OXYGEN SATURATION 94.3 % (95.0-98.0); ABG OXYHEMOGLOBIN 93.1 % (94.0-100.0); ABG PCO2 38 mmHg (35-45); ABG PH 7.459 (7.350-7.450); ABG TOTAL HEMOGLOBIN 13.4 G/dL (12.0-18.0); O2 DEVICE,BLOOD GAS VENTILATOR (ROOM AIR); PO2, ARTERIAL BG 69.5 mmHg (92.0-100.0); SITE, BLOOD GAS RT RADIAL; SOURCE, BLOOD GAS ARTERIAL; TEMPERATURE, FAHRENHEIT, BG 98.6 FAHREN (96.0-98.6); VT, ABG 550 ml
[2019-07-28 08:30] LABS: PEEP,BG 8 cm H2O
[2019-07-28] MEDS: LORazepam 2 MG/ML VIAL IVP PRN ×4 (08:39→20:33)
[2019-07-28] MEDS: ACETAMINOPHEN 325 MG TABLET PO PRN (09:25)
[2019-07-28] MEDS: SODIUM CHLORIDE 0.9% 1,000 ML IV SCH (10:13)
[2019-07-28 12:00] VITALS: BP 142/86
[2019-07-28 16:00] VITALS: BP 134/74
[2019-07-28 20:00] VITALS: BP 150/94
[2019-07-28] MEDS: CASPOFUNGIN ACETATE 50 MG in SODIUM CHLORIDE 0.9% 250 ML IV SCH (20:24)
[2019-07-29] VITALS (7 sets, daily range): BP systolic 130–172; BP diastolic 70–92
[2019-07-29] MEDS: QUEtiapine FUMARATE 100 MG TABLET PO SCH ×4 (00:12→23:41)
[2019-07-29] MEDS: METOCLOPRAMIDE HCL 5 MG/ML 2 ML VIAL IVP SCH ×4 (00:12→23:41)
[2019-07-29] MEDS: SODIUM CHLORIDE 0.9% 1,000 ML IV SCH ×2 (00:12→13:46)
[2019-07-29] MEDS: HEPARIN SODIUM,PORCINE 5,000 UNITS/ML VIAL SQ SCH ×4 (00:12→23:42)
[2019-07-29] MEDS: VANCOMYCIN HCL 1.5 GM in DEXTROSE 5%-WATER 250 ML IV SCH ×2 (00:13→05:29)
[2019-07-29] MEDS: HYPROMELLOSE 0.5% 15 ML OPHTHALMIC SOLUTION OU SCH ×5 (00:13→23:41)
[2019-07-29] MEDS: LORazepam 2 MG/ML VIAL IVP PRN ×6 (00:17→23:02)
[2019-07-29] MEDS ORDERED: SODIUM CHLORIDE 0.9% 250 ML IV ONE ×2 (00:39→00:40)
[2019-07-29] MEDS: PROPOFOL 1000 MG/ISO-OSM 100 ML IV PRN ×8 (00:50→21:26)
[2019-07-29] MEDS: MetroNIDAZOLE 500 MG/NACL 100 ML IV SCH ×3 (02:32→18:12)
[2019-07-29] MEDS: CEFEPIME HCL 2 GM in DEXTROSE 5%-WATER 50 ML IV SCH ×3 (03:41→20:07)
[2019-07-29 06:28] LABS: ANION GAP 7 mmol/L (8-16); CALCIUM, TOTAL 8.9 mg/dL (8.8-10.5); CARBON DIOXIDE 28 mmol/L (22-29); CHLORIDE 105 mmol/L (98-107); CREATININE 0.53 mg/dL (0.60-1.30); GLOMERULAR FILTR. RATE CALC > 60 mL/min (>60); GLUCOSE,RANDOM 101 mg/dL (70-110); POTASSIUM 4.1 mmol/L (3.5-5.1); SODIUM SERUM 140 mmol/L (136-145); UREA NITROGEN, BLOOD 10 mg/dL (7-18); VANCOMYCIN,RANDOM 20.7 mcg/mL (25.0-50.0)
[2019-07-29] MEDS: DOCUSATE SODIUM 100 MG CAPSULE PO SCH ×2 (08:24→20:15)
[2019-07-29] MEDS: MULTIVITAMINS WITH MINERALS, THERAPEUTIC 15 ML UDCUP NG SCH (08:24)
[2019-07-29] MEDS: AMINO ACIDS/PROTEIN HYDROLYS 30 ML TUBE PO SCH ×2 (08:24→12:23)
[2019-07-29] MEDS: PANTOPRAZOLE SODIUM 40 MG DR TABLET PO SCH (09:00)
[2019-07-29] MEDS: ACETAMINOPHEN 325 MG TABLET PO PRN ×2 (09:17→14:47)
[2019-07-29] MEDS ORDERED: GADOBUTROL 1 MMOL/ML 10 ML VIAL IVP ONE (09:56)
[2019-07-29] MEDS: IPRATROPIUM BROMIDE 0.5 MG/2.5 ML NEB SOLUTION NEB PRN ×2 (11:45→20:22)
[2019-07-29] MEDS: ALBUTEROL SULFATE 2.5 MG/0.5 ML NEB SOLUTION NEB PRN ×2 (11:45→20:21)
[2019-07-29] MEDS: VANCOMYCIN HCL 1.25 GM in DEXTROSE 5%-WATER 250 ML IV SCH ×3 (12:22→23:42)
[2019-07-29 14:52] LABS: ABG A-A DIFF O2 112.1 mmHg (10-20.0); ABG BASE EXCESS -0.3 mmol/L (-2.0-3.0); ABG CARBOXYHEMOGLOBIN 0.5 % (0.0-1.5); ABG HCO3 24.4 mmol/L (22.0-26.0); ABG METHEMOGLOBIN 0.3 % (0.0-1.5); ABG OXYGEN CONTENT 17.5 mL/dL (15.0-23.0); ABG OXYHEMOGLOBIN 95.2 % (94.0-100.0); ABG PCO2 40 mmHg (35-45); ABG PH 7.407 (7.350-7.450); PO2, ARTERIAL BG 90.4 mmHg (92.0-100.0); SOURCE, BLOOD GAS ARTERIAL; TEMPERATURE, FAHRENHEIT, BG 100.2 FAHREN (96.0-98.6)
[2019-07-29 15:07] LABS: O2 DEVICE,BLOOD GAS VENTILATOR (ROOM AIR); PEEP,BG 5 cm H2O; SITE, BLOOD GAS RT RADIAL; VT, ABG 550 ml
[2019-07-29] MEDS: CASPOFUNGIN ACETATE 50 MG in SODIUM CHLORIDE 0.9% 250 ML IV SCH (20:15)
[2019-07-30] VITALS (10 sets, daily range): BP systolic 129–162; BP diastolic 71–98
[2019-07-30] MEDS: PROPOFOL 1000 MG/ISO-OSM 100 ML IV PRN ×8 (00:30→22:26)
[2019-07-30] MEDS: SODIUM CHLORIDE 0.9% 1,000 ML IV SCH ×2 (02:03→15:24)
[2019-07-30] MEDS: MetroNIDAZOLE 500 MG/NACL 100 ML IV SCH ×3 (02:04→18:01)
[2019-07-30] MEDS: LORazepam 2 MG/ML VIAL IVP PRN ×4 (03:48→23:56)
[2019-07-30] MEDS: CEFEPIME HCL 2 GM in DEXTROSE 5%-WATER 50 ML IV SCH ×3 (03:48→20:27)
[2019-07-30] MEDS: HYPROMELLOSE 0.5% 15 ML OPHTHALMIC SOLUTION OU SCH ×3 (05:18→18:02)
[2019-07-30] MEDS: VANCOMYCIN HCL 1.25 GM in DEXTROSE 5%-WATER 250 ML IV SCH ×3 (05:18→18:01)
[2019-07-30] MEDS: MULTIVITAMINS WITH MINERALS, THERAPEUTIC 15 ML UDCUP NG SCH (08:16)
[2019-07-30] MEDS: AMINO ACIDS/PROTEIN HYDROLYS 30 ML TUBE PO SCH ×2 (08:16→12:03)
[2019-07-30] MEDS: HEPARIN SODIUM,PORCINE 5,000 UNITS/ML VIAL SQ SCH ×2 (08:16→15:24)
[2019-07-30] MEDS: QUEtiapine FUMARATE 100 MG TABLET PO SCH ×2 (08:16→15:24)
[2019-07-30] MEDS: METOCLOPRAMIDE HCL 5 MG/ML 2 ML VIAL IVP SCH ×2 (08:16→15:23)
[2019-07-30] MEDS: DOCUSATE SODIUM 100 MG CAPSULE PO SCH ×2 (08:17→20:27)
[2019-07-30] MEDS: PANTOPRAZOLE SODIUM 40 MG DR TABLET PO SCH (08:17)
[2019-07-30 12:32] LABS: BASOPHILS % (AUTO) 0.8 % (0.0-2.0); EOSINOPHILS % (AUTO) 2.4 % (1.0-6.0); HEMATOCRIT 39.8 % (41-53); HEMOGLOBIN 12.9 g/dL (13.5-17.5); LYMPHOCYTES # (AUTO) 1.5 K/uL (1.0-4.8); LYMPHOCYTES % (AUTO) 18.1 % (22.0-44.0); MEAN CORPUSCULAR HEMOGLOBIN 31.2 pg (26.0-34.0); MEAN CORPUSCULAR HGB CONC 32.5 G/dL (31.0-37.0); MEAN CORPUSCULAR VOLUME 96 fL (80-100); MONOCYTES # (AUTO) 0.7 K/uL (0.1-1.0); MONOCYTES % (AUTO) 7.9 % (2.0-9.0); NEUTROPHILS % (AUTO) 70.8 % (40.0-70.0); PLATELET COUNT (AUTO) 671 K/uL (150-450); RED BLOOD CELL COUNT(AUTO) 4.14 MIL/uL (4.50-5.90)
[2019-07-30 12:44] LABS: ALBUMIN 1.8 g/dL (3.4-5.0); ANION GAP 11 mmol/L (8-16); CALCIUM, TOTAL 8.7 mg/dL (8.8-10.5); CARBON DIOXIDE 25 mmol/L (22-29); CHLORIDE 107 mmol/L (98-107); CREATININE 0.56 mg/dL (0.60-1.30); GLOMERULAR FILTR. RATE CALC > 60 mL/min (>60); GLUCOSE,RANDOM 109 mg/dL (70-110); POTASSIUM 3.5 mmol/L (3.5-5.1); SODIUM SERUM 143 mmol/L (136-145); UREA NITROGEN, BLOOD 14 mg/dL (7-18); VANCOMYCIN,RANDOM 17.8 mcg/mL (25.0-50.0)
[2019-07-30] MEDS: ACETAMINOPHEN 325 MG TABLET PO PRN (14:40)
[2019-07-30 16:26] LABS: ABG A-A DIFF O2 126.4 mmHg (10-20.0); ABG BASE EXCESS 0.7 mmol/L (-2.0-3.0); ABG CARBOXYHEMOGLOBIN 0.5 % (0.0-1.5); ABG HCO3 25.3 mmol/L (22.0-26.0); ABG METHEMOGLOBIN 0.3 % (0.0-1.5); ABG OXYGEN CONTENT 17.2 mL/dL (15.0-23.0); ABG OXYGEN SATURATION 94.7 % (95.0-98.0); ABG OXYHEMOGLOBIN 93.9 % (94.0-100.0); ABG PCO2 37 mmHg (35-45); PO2, ARTERIAL BG 78.7 mmHg (92.0-100.0); SOURCE, BLOOD GAS ARTERIAL; TEMPERATURE, FAHRENHEIT, BG 100.6 FAHREN (96.0-98.6)
[2019-07-30 16:27] LABS: O2 DEVICE,BLOOD GAS VENTILATOR (ROOM AIR); PEEP,BG 5 cm H2O; SITE, BLOOD GAS RT RADIAL; SPONTANEOUS VT, BG 599 ml; VT, ABG 550 ml
[2019-07-30] MEDS: CASPOFUNGIN ACETATE 50 MG in SODIUM CHLORIDE 0.9% 250 ML IV SCH (20:27)
[2019-07-31] VITALS: BP 145/84
[2019-07-31] MEDS: HYPROMELLOSE 0.5% 15 ML OPHTHALMIC SOLUTION OU SCH ×4 (00:20→18:10)
[2019-07-31] MEDS: VANCOMYCIN HCL 1.25 GM in DEXTROSE 5%-WATER 250 ML IV SCH ×4 (00:20→18:10)
[2019-07-31] MEDS: QUEtiapine FUMARATE 100 MG TABLET PO SCH ×3 (00:21→17:10)
[2019-07-31] MEDS: METOCLOPRAMIDE HCL 5 MG/ML 2 ML VIAL IVP SCH ×3 (00:21→17:10)
[2019-07-31] MEDS: HEPARIN SODIUM,PORCINE 5,000 UNITS/ML VIAL SQ SCH ×3 (00:21→17:10)
[2019-07-31] MEDS: PROPOFOL 1000 MG/ISO-OSM 100 ML IV PRN ×5 (01:33→22:36)
[2019-07-31] MEDS: MetroNIDAZOLE 500 MG/NACL 100 ML IV SCH ×3 (02:56→18:14)
[2019-07-31 04:00] VITALS: BP 164/86
[2019-07-31] MEDS: LORazepam 2 MG/ML VIAL IVP PRN ×3 (04:06→20:03)
[2019-07-31] MEDS: CEFEPIME HCL 2 GM in DEXTROSE 5%-WATER 50 ML IV SCH ×3 (04:07→20:03)
[2019-07-31] MEDS: SODIUM CHLORIDE 0.9% 1,000 ML IV SCH ×2 (04:07→18:10)
[2019-07-31] MEDS ORDERED: SODIUM CHLORIDE 0.9% 100 ML ONE (05:45)
[2019-07-31 06:18] LABS: HEMATOCRIT 39.9 % (41-53); HEMOGLOBIN 12.7 g/dL (13.5-17.5); LYMPHOCYTES % (AUTO) 15.5 % (22.0-44.0); MEAN CORPUSCULAR HEMOGLOBIN 30.8 pg (26.0-34.0); MEAN CORPUSCULAR HGB CONC 31.9 G/dL (31.0-37.0); MEAN CORPUSCULAR VOLUME 97 fL (80-100); NEUTROPHILS % (AUTO) 71.7 % (40.0-70.0); PLATELET COUNT (AUTO) 685 K/uL (150-450); RED BLOOD CELL COUNT(AUTO) 4.13 MIL/uL (4.50-5.90); RED CELL DISTRIBUTION WIDTH 14.1 % (11.5-14.5)
[2019-07-31 06:19] LABS: BASOPHILS % (AUTO) 0.6 % (0.0-2.0); EOSINOPHILS % (AUTO) 2.1 % (1.0-6.0); LYMPHOCYTES # (AUTO) 1.8 K/uL (1.0-4.8); MONOCYTES # (AUTO) 1.1 K/uL (0.1-1.0); MONOCYTES % (AUTO) 10.1 % (2.0-9.0); NEUTROPHILS # (AUTO) 8.1 K/uL (1.8-7.7)
[2019-07-31] MEDS: FentaNYL CITRATE PF 500 MCG in DEXTROSE 5%-WATER 90 ML IV PRN ×3 (06:23→22:55)
[2019-07-31 06:28] LABS: ANION GAP 13 mmol/L (8-16); CALCIUM, TOTAL 8.7 mg/dL (8.8-10.5); CARBON DIOXIDE 27 mmol/L (22-29); CHLORIDE 103 mmol/L (98-107); CREATININE 0.56 mg/dL (0.60-1.30); GLOMERULAR FILTR. RATE CALC > 60 mL/min (>60); GLUCOSE,RANDOM 110 mg/dL (70-110); POTASSIUM 3.6 mmol/L (3.5-5.1); SODIUM SERUM 143 mmol/L (136-145); UREA NITROGEN, BLOOD 12 mg/dL (7-18)
[2019-07-31 08:00] VITALS: BP 138/92
[2019-07-31] MEDS: PANTOPRAZOLE SODIUM 40 MG DR TABLET PO SCH (09:19)
[2019-07-31] MEDS: DOCUSATE SODIUM 100 MG CAPSULE PO SCH ×2 (09:19→20:04)
[2019-07-31] MEDS: MULTIVITAMINS WITH MINERALS, THERAPEUTIC 15 ML UDCUP NG SCH (09:23)
[2019-07-31] MEDS: AMINO ACIDS/PROTEIN HYDROLYS 30 ML TUBE PO SCH ×2 (09:23→12:26)
[2019-07-31 12:00] VITALS: BP 154/72
[2019-07-31] MEDS: ACETAMINOPHEN 325 MG TABLET PO PRN (15:03)
[2019-07-31 16:00] VITALS: BP 129/62
[2019-07-31 20:00] VITALS: BP 151/101
[2019-07-31] MEDS: CASPOFUNGIN ACETATE 50 MG in SODIUM CHLORIDE 0.9% 250 ML IV SCH (20:04)
[2019-08-01] VITALS: BP 133/71
[2019-08-01] MEDS: HEPARIN SODIUM,PORCINE 5,000 UNITS/ML VIAL SQ SCH ×3 (00:39→17:10)
[2019-08-01] MEDS: VANCOMYCIN HCL 1.25 GM in DEXTROSE 5%-WATER 250 ML IV SCH ×2 (00:39→05:59)
[2019-08-01] MEDS: PROPOFOL 1000 MG/ISO-OSM 100 ML IV PRN ×9 (00:39→20:38)
[2019-08-01] MEDS: METOCLOPRAMIDE HCL 5 MG/ML 2 ML VIAL IVP SCH ×3 (00:40→17:10)
[2019-08-01] MEDS: QUEtiapine FUMARATE 100 MG TABLET PO SCH ×3 (00:40→17:10)
[2019-08-01] MEDS: HYPROMELLOSE 0.5% 15 ML OPHTHALMIC SOLUTION OU SCH ×4 (00:41→18:34)
[2019-08-01] MEDS: MetroNIDAZOLE 500 MG/NACL 100 ML IV SCH ×3 (02:27→17:01)
[2019-08-01] MEDS: FentaNYL CITRATE PF 500 MCG in DEXTROSE 5%-WATER 90 ML IV PRN ×4 (03:22→19:09)
[2019-08-01 04:00] VITALS: BP 147/81
[2019-08-01] MEDS: ACETAMINOPHEN 325 MG TABLET PO PRN ×2 (04:51→20:37)
[2019-08-01] MEDS: CEFEPIME HCL 2 GM in DEXTROSE 5%-WATER 50 ML IV SCH ×3 (04:51→20:38)
[2019-08-01] MEDS ORDERED: SODIUM CHLORIDE 0.9% 100 ML ONE ×2 (05:27→13:35)
[2019-08-01] MEDS: SODIUM CHLORIDE 0.9% 1,000 ML IV SCH ×2 (06:00→20:38)
[2019-08-01 08:00] VITALS: BP 140/78
[2019-08-01] MEDS: DOCUSATE SODIUM 100 MG CAPSULE PO SCH ×2 (08:20→20:37)
[2019-08-01] MEDS: MULTIVITAMINS WITH MINERALS, THERAPEUTIC 15 ML UDCUP NG SCH (08:20)
[2019-08-01] MEDS: PANTOPRAZOLE SODIUM 40 MG DR TABLET PO SCH (08:21)
[2019-08-01] MEDS: AMINO ACIDS/PROTEIN HYDROLYS 30 ML TUBE PO SCH ×2 (08:21→12:23)
[2019-08-01] MEDS: LORazepam 2 MG/ML VIAL IVP PRN ×5 (08:42→23:41)
[2019-08-01 09:39] LABS: BASOPHILS % (AUTO) 0.6 % (0.0-2.0); EOSINOPHILS % (AUTO) 2.8 % (1.0-6.0); HEMATOCRIT 38.9 % (41-53); HEMOGLOBIN 12.8 g/dL (13.5-17.5); LYMPHOCYTES % (AUTO) 17.4 % (22.0-44.0); MEAN CORPUSCULAR HEMOGLOBIN 31.6 pg (26.0-34.0); MEAN CORPUSCULAR HGB CONC 32.8 G/dL (31.0-37.0); MEAN CORPUSCULAR VOLUME 96 fL (80-100); MONOCYTES # (AUTO) 1.4 K/uL (0.1-1.0); MONOCYTES % (AUTO) 11.9 % (2.0-9.0); NEUTROPHILS # (AUTO) 7.9 K/uL (1.8-7.7); NEUTROPHILS % (AUTO) 67.3 % (40.0-70.0); PLATELET COUNT (AUTO) 672 K/uL (150-450); RED BLOOD CELL COUNT(AUTO) 4.04 MIL/uL (4.50-5.90); RED CELL DISTRIBUTION WIDTH 14.4 % (11.5-14.5)
[2019-08-01 10:13] LABS: ANION GAP 6 mmol/L (8-16); CALCIUM, TOTAL 8.5 mg/dL (8.8-10.5); CARBON DIOXIDE 29 mmol/L (22-29); CHLORIDE 103 mmol/L (98-107); GLOMERULAR FILTR. RATE CALC > 60 mL/min (>60); GLUCOSE,RANDOM 101 mg/dL (70-110); POTASSIUM 3.8 mmol/L (3.5-5.1); SODIUM SERUM 138 mmol/L (136-145); UREA NITROGEN, BLOOD 12 mg/dL (7-18); VANCOMYCIN,RANDOM 26.4 mcg/mL (25.0-50.0)
[2019-08-01 12:00] VITALS: BP 140/66
[2019-08-01] MEDS ORDERED: IOVERSOL 350 MG/ML 150 ML VIAL ONE (13:35)
[2019-08-01 16:00] VITALS: BP 120/60
[2019-08-01] MEDS: VANCOMYCIN HCL 1.5 GM in DEXTROSE 5%-WATER 250 ML IV SCH ×2 (17:01→18:34)
[2019-08-01 20:00] VITALS: BP 115/63
[2019-08-01 20:24] LABS: APPEARANCE,URINE CLOUDY (CLEAR); BILIRUBIN,URINE NEGATIVE (NEGATIVE); GLUCOSE, URINE (UA) NEGATIVE (NEGATIVE); KETONES,URINE NEGATIVE (NEGATIVE); LEUKOCYTE ESTERASE ,URINE NEGATIVE (NEGATIVE); NITRATE,URINE NEGATIVE (NEGATIVE); OCCULT BLOOD,URINE NEGATIVE (NEGATIVE); PROTEIN,URINE NEGATIVE (NEGATIVE)
[2019-08-01 20:31] LABS: BACTERIA,URINE None Seen /HPF (None Seen); WBC,URINE 0-2 /HPF (0-5)
[2019-08-01 20:32] LABS: SQUAMOUS EPITHELIAL CELL,UR Rare /LPF (None Seen)
[2019-08-01] MEDS: CASPOFUNGIN ACETATE 50 MG in SODIUM CHLORIDE 0.9% 250 ML IV SCH (20:37)
[2019-08-02] VITALS: BP 104/49
[2019-08-02] MEDS: PROPOFOL 1000 MG/ISO-OSM 100 ML IV PRN ×7 (00:04→22:06)
[2019-08-02] MEDS: QUEtiapine FUMARATE 100 MG TABLET PO SCH ×3 (00:06→16:00)
[2019-08-02] MEDS: METOCLOPRAMIDE HCL 5 MG/ML 2 ML VIAL IVP SCH ×3 (00:07→16:45)
[2019-08-02] MEDS: HYPROMELLOSE 0.5% 15 ML OPHTHALMIC SOLUTION OU SCH ×4 (00:07→17:55)
[2019-08-02] MEDS: VANCOMYCIN HCL 1.5 GM in DEXTROSE 5%-WATER 250 ML IV SCH ×4 (00:07→17:55)
[2019-08-02] MEDS: HEPARIN SODIUM,PORCINE 5,000 UNITS/ML VIAL SQ SCH ×3 (00:07→16:00)
[2019-08-02] MEDS: FentaNYL CITRATE PF 500 MCG in DEXTROSE 5%-WATER 90 ML IV PRN ×5 (00:11→23:16)
[2019-08-02] MEDS: MetroNIDAZOLE 500 MG/NACL 100 ML IV SCH ×3 (02:59→17:57)
[2019-08-02 04:00] VITALS: BP 115/62
[2019-08-02] MEDS: CEFEPIME HCL 2 GM in DEXTROSE 5%-WATER 50 ML IV SCH ×3 (04:16→20:20)
[2019-08-02] MEDS ORDERED: SODIUM CHLORIDE 0.9% 250 ML IV ONE (04:18)
[2019-08-02 05:24] LABS: ANION GAP 6 mmol/L (8-16); CALCIUM, TOTAL 8.2 mg/dL (8.8-10.5); CARBON DIOXIDE 29 mmol/L (22-29); CHLORIDE 102 mmol/L (98-107); CREATININE 0.68 mg/dL (0.60-1.30); GLOMERULAR FILTR. RATE CALC > 60 mL/min (>60); GLUCOSE,RANDOM 87 mg/dL (70-110); POTASSIUM 3.2 mmol/L (3.5-5.1); SODIUM SERUM 137 mmol/L (136-145); UREA NITROGEN, BLOOD 11 mg/dL (7-18)
[2019-08-02] MEDS: LORazepam 2 MG/ML VIAL IVP PRN ×3 (05:49→20:31)
[2019-08-02] MEDS: POTASSIUM CHL 10 MEQ/WATER 50 ML IV PRN ×3 (06:13→10:41)
[2019-08-02 08:00] VITALS: BP 153/72
[2019-08-02] MEDS: AMINO ACIDS/PROTEIN HYDROLYS 30 ML TUBE PO SCH ×2 (08:00→12:00)
[2019-08-02] MEDS: SODIUM CHLORIDE 0.9% 1,000 ML IV SCH ×2 (08:49→23:17)
[2019-08-02] MEDS: PANTOPRAZOLE SODIUM 40 MG DR TABLET PO SCH (09:00)
[2019-08-02] MEDS: MULTIVITAMINS WITH MINERALS, THERAPEUTIC 15 ML UDCUP NG SCH (09:00)
[2019-08-02] MEDS: DOCUSATE SODIUM 100 MG CAPSULE PO SCH ×2 (09:00→20:17)
[2019-08-02] MEDS ORDERED: BUPIVACAINE HCL/PF 0.25% 30 ML VIAL ONE (09:32)
[2019-08-02 12:00] VITALS: BP 129/65
[2019-08-02] MEDS ORDERED: ROCURONIUM BROMIDE 10 MG/ML 5 ML VIAL ONE (14:19)
[2019-08-02 15:28] LABS: ALANINE AMINOTRANSFERASE 41 U/L (12-78); ALBUMIN 1.8 g/dL (3.4-5.0); ALKALINE PHOSPHATASE 50 U/L (46-116); ASPARTATE AMINOTRANSFERASE 69 U/L (15-37); BILIRUBIN,TOTAL 0.4 mg/dL (0.1-1.0); TOTAL PROTEIN, SERUM 6.7 g/dL (6.4-8.2)
[2019-08-02 16:00] VITALS: BP 114/54
[2019-08-02] MEDS: ACYCLOVIR 700 MG in DEXTROSE 5%-WATER 100 ML IV SCH ×2 (16:45→22:07)
[2019-08-02 20:00] VITALS: BP 144/72
[2019-08-02] MEDS: MIDAZOLAM HCL 100 MG in DEXTROSE 5%-WATER 180 ML IV PRN (20:34)
[2019-08-02] MEDS: ACETAMINOPHEN 325 MG TABLET PO PRN (22:12)
[2019-08-03] VITALS (8 sets, daily range): BP systolic 107–129; BP diastolic 59–76
[2019-08-03] MEDS: METOCLOPRAMIDE HCL 5 MG/ML 2 ML VIAL IVP SCH ×3 (00:45→17:38)
[2019-08-03] MEDS: HYPROMELLOSE 0.5% 15 ML OPHTHALMIC SOLUTION OU SCH ×4 (00:45→18:22)
[2019-08-03] MEDS: VANCOMYCIN HCL 1.5 GM in DEXTROSE 5%-WATER 250 ML IV SCH ×3 (00:45→12:19)
[2019-08-03] MEDS: QUEtiapine FUMARATE 100 MG TABLET PO SCH ×3 (00:47→17:38)
[2019-08-03] MEDS: LORazepam 2 MG/ML VIAL IVP PRN ×5 (01:09→20:13)
[2019-08-03] MEDS: MetroNIDAZOLE 500 MG/NACL 100 ML IV SCH ×3 (02:21→18:22)
[2019-08-03] MEDS: PROPOFOL 1000 MG/ISO-OSM 100 ML IV PRN ×7 (03:14→21:29)
[2019-08-03] MEDS: FentaNYL CITRATE PF 500 MCG in DEXTROSE 5%-WATER 90 ML IV PRN ×2 (04:05→15:15)
[2019-08-03] MEDS: CEFEPIME HCL 2 GM in DEXTROSE 5%-WATER 50 ML IV SCH ×3 (04:23→20:37)
[2019-08-03] MEDS: IPRATROPIUM BROMIDE 0.5 MG/2.5 ML NEB SOLUTION NEB PRN (05:02)
[2019-08-03] MEDS: ALBUTEROL SULFATE 2.5 MG/0.5 ML NEB SOLUTION NEB PRN (05:02)
[2019-08-03] MEDS ORDERED: SODIUM CHLORIDE 0.9% 100 ML ONE (05:43)
[2019-08-03] MEDS: ACYCLOVIR 700 MG in DEXTROSE 5%-WATER 100 ML IV SCH ×3 (05:46→22:59)
[2019-08-03] MEDS ORDERED: MIDAZOLAM HCL 2 MG/2 ML VIAL IVP ONE (06:10)
[2019-08-03] MEDS ORDERED: FentaNYL CITRATE-PF 100 MCG/2 ML VIAL IVP ONE (06:10)
[2019-08-03] MEDS: HEPARIN SODIUM,PORCINE 5,000 UNITS/ML VIAL SQ SCH ×3 (08:00→17:38)
[2019-08-03] MEDS: DOCUSATE SODIUM 100 MG CAPSULE PO SCH ×2 (09:00→21:00)
[2019-08-03] MEDS: MULTIVITAMINS WITH MINERALS, THERAPEUTIC 15 ML UDCUP NG SCH (09:14)
[2019-08-03] MEDS: AMINO ACIDS/PROTEIN HYDROLYS 30 ML TUBE PO SCH ×2 (09:15→12:19)
[2019-08-03] MEDS: PANTOPRAZOLE SODIUM 40 MG DR TABLET PO SCH (09:15)
[2019-08-03 11:24] LABS: BASOPHILS % (AUTO) 0.7 % (0.0-2.0); EOSINOPHILS % (AUTO) 3.9 % (1.0-6.0); HEMATOCRIT 38.4 % (41-53); HEMOGLOBIN 12.5 g/dL (13.5-17.5); LYMPHOCYTES # (AUTO) 1.3 K/uL (1.0-4.8); MEAN CORPUSCULAR HEMOGLOBIN 31.6 pg (26.0-34.0); MEAN CORPUSCULAR HGB CONC 32.6 G/dL (31.0-37.0); MEAN CORPUSCULAR VOLUME 97 fL (80-100); MONOCYTES # (AUTO) 0.9 K/uL (0.1-1.0); MONOCYTES % (AUTO) 10.2 % (2.0-9.0); NEUTROPHILS # (AUTO) 6.6 K/uL (1.8-7.7); NEUTROPHILS % (AUTO) 71.2 % (40.0-70.0); PLATELET COUNT (AUTO) 557 K/uL (150-450); RED BLOOD CELL COUNT(AUTO) 3.96 MIL/uL (4.50-5.90); RED CELL DISTRIBUTION WIDTH 14.5 % (11.5-14.5)
[2019-08-03 11:41] LABS: ANION GAP 5 mmol/L (8-16); CALCIUM, TOTAL 8.5 mg/dL (8.8-10.5); CARBON DIOXIDE 29 mmol/L (22-29); CHLORIDE 104 mmol/L (98-107); CREATININE 0.57 mg/dL (0.60-1.30); GLOMERULAR FILTR. RATE CALC > 60 mL/min (>60); GLUCOSE,RANDOM 98 mg/dL (70-110); POTASSIUM 3.3 mmol/L (3.5-5.1); SODIUM SERUM 138 mmol/L (136-145); UREA NITROGEN, BLOOD 7 mg/dL (7-18); VANCOMYCIN,RANDOM 21.7 mcg/mL (25.0-50.0)
[2019-08-03 13:27] LABS: CREATINE KINASE, TOTAL ONLY 253 U/L (39-308)
[2019-08-03] MEDS: SODIUM CHLORIDE 0.9% 1,000 ML IV SCH ×2 (14:34→23:10)
[2019-08-03 17:16] LABS: ABG BASE EXCESS 3.3 mmol/L (-2.0-3.0); ABG CARBOXYHEMOGLOBIN 0.6 % (0.0-1.5); ABG HCO3 26.8 mmol/L (22.0-26.0); ABG METHEMOGLOBIN 0.3 % (0.0-1.5); ABG OXYGEN CONTENT 17.2 mL/dL (15.0-23.0); ABG OXYGEN SATURATION 95.9 % (95.0-98.0); ABG PCO2 46 mmHg (35-45); ABG PH 7.404 (7.350-7.450); ABG TOTAL HEMOGLOBIN 12.8 G/dL (12.0-18.0); PO2, ARTERIAL BG 79.1 mmHg (92.0-100.0); SOURCE, BLOOD GAS ARTERIAL; TEMPERATURE, FAHRENHEIT, BG 97.7 FAHREN (96.0-98.6)
[2019-08-03 17:17] LABS: O2 DEVICE,BLOOD GAS VENTILATOR (ROOM AIR); PEEP,BG 5 cm H2O; SITE, BLOOD GAS RT RADIAL; VT, ABG 550 ml
[2019-08-03] MEDS: VANCOMYCIN HCL 1.25 GM in DEXTROSE 5%-WATER 250 ML IV SCH (18:21)
[2019-08-03] MEDS: POTASSIUM CHLORIDE 20 MEQ ER TABLET PO PRN (18:26)
[2019-08-03] MEDS ORDERED: SODIUM CHLORIDE 0.9% 250 ML IV ONE (20:10)
[2019-08-04] VITALS: BP 115/75
[2019-08-04] MEDS: VANCOMYCIN HCL 1.25 GM in DEXTROSE 5%-WATER 250 ML IV SCH ×5 (00:09→23:52)
[2019-08-04] MEDS: HYPROMELLOSE 0.5% 15 ML OPHTHALMIC SOLUTION OU SCH ×4 (00:12→16:56)
[2019-08-04] MEDS: QUEtiapine FUMARATE 100 MG TABLET PO SCH ×2 (00:15→10:31)
[2019-08-04] MEDS: METOCLOPRAMIDE HCL 5 MG/ML 2 ML VIAL IVP SCH ×4 (00:16→23:53)
[2019-08-04] MEDS: HEPARIN SODIUM,PORCINE 5,000 UNITS/ML VIAL SQ SCH ×4 (00:16→23:52)
[2019-08-04] MEDS: LORazepam 2 MG/ML VIAL IVP PRN ×3 (00:35→15:21)
[2019-08-04] MEDS: PROPOFOL 1000 MG/ISO-OSM 100 ML IV PRN ×6 (01:28→16:44)
[2019-08-04] MEDS: MetroNIDAZOLE 500 MG/NACL 100 ML IV SCH ×3 (02:14→16:55)
[2019-08-04] MEDS: FentaNYL CITRATE PF 500 MCG in DEXTROSE 5%-WATER 90 ML IV PRN ×4 (02:47→23:17)
[2019-08-04] MEDS: MIDAZOLAM HCL 100 MG in DEXTROSE 5%-WATER 180 ML IV PRN (02:48)
[2019-08-04] MEDS: CEFEPIME HCL 2 GM in DEXTROSE 5%-WATER 50 ML IV SCH ×3 (04:28→20:27)
[2019-08-04 04:30] VITALS: BP 105/54
[2019-08-04] MEDS: ACYCLOVIR 700 MG in DEXTROSE 5%-WATER 100 ML IV SCH ×3 (05:48→13:17)
[2019-08-04 07:22] LABS: ANION GAP 7 mmol/L (8-16); CALCIUM, TOTAL 8.5 mg/dL (8.8-10.5); CARBON DIOXIDE 30 mmol/L (22-29); CHLORIDE 102 mmol/L (98-107); CREATININE 0.65 mg/dL (0.60-1.30); GLOMERULAR FILTR. RATE CALC > 60 mL/min (>60); GLUCOSE,RANDOM 114 mg/dL (70-110); POTASSIUM 3.2 mmol/L (3.5-5.1); SODIUM SERUM 139 mmol/L (136-145); UREA NITROGEN, BLOOD 6 mg/dL (7-18)
[2019-08-04 08:00] VITALS: BP 123/59
[2019-08-04] MEDS: AMINO ACIDS/PROTEIN HYDROLYS 30 ML TUBE PO SCH ×2 (08:00→13:18)
[2019-08-04] MEDS: POTASSIUM CHL 10 MEQ/WATER 50 ML IV PRN ×3 (10:12→13:16)
[2019-08-04] MEDS: DOCUSATE SODIUM 100 MG CAPSULE PO SCH (10:31)
[2019-08-04] MEDS: MULTIVITAMINS WITH MINERALS, THERAPEUTIC 15 ML UDCUP NG SCH (10:32)
[2019-08-04] MEDS: DOCUSATE SODIUM 100 MG/10 ML LIQUID UDCUP PEG SCH ×2 (11:12→21:00)
[2019-08-04] MEDS ORDERED: DOCUSATE SODIUM 100 MG/10 ML LIQUID UDCUP PEG SCH (11:15)
[2019-08-04 12:00] VITALS: BP 119/65
[2019-08-04] MEDS: LANSOPRAZOLE 30 MG SOLUBLE TABLET PEG SCH (13:17)
[2019-08-04 16:00] VITALS: BP 122/66
[2019-08-04] MEDS: SODIUM CHLORIDE 0.9% 1,000 ML IV SCH (16:54)
[2019-08-04] MEDS: LORazepam 2 MG TABLET PO SCH ×2 (16:55→23:52)
[2019-08-04 20:00] VITALS: BP 122/60
[2019-08-04 20:22] LABS: ANION GAP 6 mmol/L (8-16); CALCIUM, TOTAL 8.4 mg/dL (8.8-10.5); CARBON DIOXIDE 31 mmol/L (22-29); CHLORIDE 103 mmol/L (98-107); CREATININE 0.55 mg/dL (0.60-1.30); GLOMERULAR FILTR. RATE CALC > 60 mL/min (>60); GLUCOSE,RANDOM 96 mg/dL (70-110); POTASSIUM 3.9 mmol/L (3.5-5.1); SODIUM SERUM 140 mmol/L (136-145); UREA NITROGEN, BLOOD 9 mg/dL (7-18)
[2019-08-05] VITALS (8 sets, daily range): BP systolic 103–126; BP diastolic 52–85
[2019-08-05] MEDS: HYPROMELLOSE 0.5% 15 ML OPHTHALMIC SOLUTION OU SCH ×5 (00:07→23:49)
[2019-08-05] MEDS: ACETAMINOPHEN 325 MG TABLET PO PRN ×3 (00:08→16:47)
[2019-08-05] MEDS: PROPOFOL 1000 MG/ISO-OSM 100 ML IV PRN ×9 (00:19→23:50)
[2019-08-05] MEDS: MIDAZOLAM HCL 100 MG in DEXTROSE 5%-WATER 180 ML IV PRN ×2 (01:48→16:59)
[2019-08-05] MEDS: MetroNIDAZOLE 500 MG/NACL 100 ML IV SCH ×3 (02:15→18:10)
[2019-08-05] MEDS: CEFEPIME HCL 2 GM in DEXTROSE 5%-WATER 50 ML IV SCH ×3 (04:13→20:24)
[2019-08-05 05:32] LABS: EOSINOPHILS % (AUTO) 6.1 % (1.0-6.0); HEMATOCRIT 36.6 % (41-53); LYMPHOCYTES # (AUTO) 2.3 K/uL (1.0-4.8); LYMPHOCYTES % (AUTO) 28.2 % (22.0-44.0); MEAN CORPUSCULAR HEMOGLOBIN 31.5 pg (26.0-34.0); MEAN CORPUSCULAR HGB CONC 32.8 G/dL (31.0-37.0); MEAN CORPUSCULAR VOLUME 96 fL (80-100); MONOCYTES % (AUTO) 12.8 % (2.0-9.0); NEUTROPHILS # (AUTO) 4.2 K/uL (1.8-7.7); NEUTROPHILS % (AUTO) 51.9 % (40.0-70.0); PLATELET COUNT (AUTO) 514 K/uL (150-450); RED BLOOD CELL COUNT(AUTO) 3.81 MIL/uL (4.50-5.90); RED CELL DISTRIBUTION WIDTH 14.4 % (11.5-14.5)
[2019-08-05] MEDS: VANCOMYCIN HCL 1.25 GM in DEXTROSE 5%-WATER 250 ML IV SCH ×4 (05:34→23:49)
[2019-08-05 05:59] LABS: ANION GAP 5 mmol/L (8-16); CALCIUM, TOTAL 8.6 mg/dL (8.8-10.5); CARBON DIOXIDE 31 mmol/L (22-29); CHLORIDE 101 mmol/L (98-107); CREATININE 0.65 mg/dL (0.60-1.30); GLOMERULAR FILTR. RATE CALC > 60 mL/min (>60); GLUCOSE,RANDOM 110 mg/dL (70-110); POTASSIUM 3.6 mmol/L (3.5-5.1); SODIUM SERUM 137 mmol/L (136-145); UREA NITROGEN, BLOOD 9 mg/dL (7-18); VANCOMYCIN,RANDOM 22.1 mcg/mL (25.0-50.0)
[2019-08-05] MEDS: ACYCLOVIR 700 MG in DEXTROSE 5%-WATER 100 ML IV SCH ×3 (06:07→22:37)
[2019-08-05] MEDS: DOCUSATE SODIUM 100 MG/10 ML LIQUID UDCUP PEG SCH ×2 (09:00→20:25)
[2019-08-05] MEDS: SODIUM CHLORIDE 0.9% 1,000 ML IV SCH ×2 (09:42→18:09)
[2019-08-05] MEDS: LANSOPRAZOLE 30 MG SOLUBLE TABLET PEG SCH (09:42)
[2019-08-05] MEDS: METOCLOPRAMIDE HCL 5 MG/ML 2 ML VIAL IVP SCH ×3 (09:42→23:49)
[2019-08-05] MEDS: LORazepam 2 MG TABLET PO SCH ×3 (09:42→23:49)
[2019-08-05] MEDS: MULTIVITAMINS WITH MINERALS, THERAPEUTIC 15 ML UDCUP NG SCH (09:42)
[2019-08-05] MEDS: ALPRAZolam 1 MG TABLET PO SCH ×2 (09:43→20:27)
[2019-08-05] MEDS: HEPARIN SODIUM,PORCINE 5,000 UNITS/ML VIAL SQ SCH ×3 (09:43→23:50)
[2019-08-05] MEDS: AMINO ACIDS/PROTEIN HYDROLYS 30 ML TUBE PO SCH ×2 (09:48→13:22)
[2019-08-05] MEDS: MAGNESIUM OXIDE 400 MG TABLET PO PRN ×3 (10:34→15:57)
[2019-08-05] MEDS: POTASSIUM CHL 10 MEQ/WATER 50 ML IV PRN ×3 (10:34→15:57)
[2019-08-05] MEDS: LORazepam 2 MG/ML VIAL IVP PRN (17:08)
[2019-08-05] MEDS: FentaNYL CITRATE PF 500 MCG in DEXTROSE 5%-WATER 90 ML IV PRN (18:16)
[2019-08-06] VITALS: BP 105/56
[2019-08-06] MEDS ORDERED: SODIUM CHLORIDE 0.9% 100 ML ONE (01:21)
[2019-08-06] MEDS: SODIUM CHLORIDE 0.9% 1,000 ML IV SCH ×2 (03:16→20:26)
[2019-08-06] MEDS: MetroNIDAZOLE 500 MG/NACL 100 ML IV SCH ×3 (03:16→18:19)
[2019-08-06 04:00] VITALS: BP 185/96
[2019-08-06] MEDS: PROPOFOL 1000 MG/ISO-OSM 100 ML IV PRN ×4 (04:23→18:20)
[2019-08-06] MEDS: LORazepam 2 MG/ML VIAL IVP PRN ×3 (04:35→16:31)
[2019-08-06] MEDS: CEFEPIME HCL 2 GM in DEXTROSE 5%-WATER 50 ML IV SCH ×3 (04:35→20:24)
[2019-08-06 05:40] LABS: ALBUMIN 1.9 g/dL (3.4-5.0); ANION GAP 5 mmol/L (8-16); CALCIUM, TOTAL 8.4 mg/dL (8.8-10.5); CARBON DIOXIDE 32 mmol/L (22-29); CHLORIDE 100 mmol/L (98-107); CREATININE 0.71 mg/dL (0.60-1.30); GLOMERULAR FILTR. RATE CALC > 60 mL/min (>60); GLUCOSE,RANDOM 95 mg/dL (70-110); POTASSIUM 4.2 mmol/L (3.5-5.1); SODIUM SERUM 137 mmol/L (136-145); UREA NITROGEN, BLOOD 11 mg/dL (7-18)
[2019-08-06] MEDS: VANCOMYCIN HCL 1.25 GM in DEXTROSE 5%-WATER 250 ML IV SCH ×3 (05:53→16:32)
[2019-08-06] MEDS: HYPROMELLOSE 0.5% 15 ML OPHTHALMIC SOLUTION OU SCH ×3 (05:53→18:18)
[2019-08-06] MEDS: ACYCLOVIR 700 MG in DEXTROSE 5%-WATER 100 ML IV SCH ×3 (05:53→22:05)
[2019-08-06 08:00] VITALS: BP 144/93
[2019-08-06] MEDS: METOCLOPRAMIDE HCL 5 MG/ML 2 ML VIAL IVP SCH ×2 (08:16→16:32)
[2019-08-06] MEDS: MULTIVITAMINS WITH MINERALS, THERAPEUTIC 15 ML UDCUP NG SCH (08:16)
[2019-08-06] MEDS: HEPARIN SODIUM,PORCINE 5,000 UNITS/ML VIAL SQ SCH ×2 (08:16→16:32)
[2019-08-06] MEDS: LORazepam 2 MG TABLET PO SCH ×2 (08:16→16:33)
[2019-08-06] MEDS: ALPRAZolam 1 MG TABLET PO SCH ×2 (08:16→20:24)
[2019-08-06] MEDS: AMINO ACIDS/PROTEIN HYDROLYS 30 ML TUBE PO SCH ×2 (08:17→11:09)
[2019-08-06] MEDS: DOCUSATE SODIUM 100 MG/10 ML LIQUID UDCUP PEG SCH ×2 (08:17→20:26)
[2019-08-06] MEDS: LANSOPRAZOLE 30 MG SOLUBLE TABLET PEG SCH (08:24)
[2019-08-06] MEDS: FentaNYL CITRATE PF 500 MCG in DEXTROSE 5%-WATER 90 ML IV PRN ×3 (08:27→21:15)
[2019-08-06] MEDS: MAGNESIUM OXIDE 400 MG TABLET PO PRN ×3 (08:56→16:32)
[2019-08-06] MEDS ORDERED: HALOPERIDOL LACTATE 5 MG/ML VIAL IM PRN (10:00)
[2019-08-06 12:00] VITALS: BP 131/68
[2019-08-06 16:00] VITALS: BP 131/69
[2019-08-06 20:00] VITALS: BP 135/66
[2019-08-06] MEDS: METHADONE HCL 10 MG TABLET PO SCH (20:24)
[2019-08-07] VITALS (7 sets, daily range): BP systolic 98–126; BP diastolic 48–67
[2019-08-07] MEDS: HEPARIN SODIUM,PORCINE 5,000 UNITS/ML VIAL SQ SCH ×3 (00:01→16:26)
[2019-08-07] MEDS: VANCOMYCIN HCL 1.25 GM in DEXTROSE 5%-WATER 250 ML IV SCH ×4 (00:01→17:16)
[2019-08-07] MEDS: METOCLOPRAMIDE HCL 5 MG/ML 2 ML VIAL IVP SCH ×3 (00:01→16:26)
[2019-08-07] MEDS: HYPROMELLOSE 0.5% 15 ML OPHTHALMIC SOLUTION OU SCH ×4 (00:02→17:16)
[2019-08-07] MEDS: LORazepam 2 MG TABLET PO SCH ×3 (00:02→16:26)
[2019-08-07] MEDS: PROPOFOL 1000 MG/ISO-OSM 100 ML IV PRN ×4 (00:14→21:45)
[2019-08-07] MEDS: MetroNIDAZOLE 500 MG/NACL 100 ML IV SCH ×3 (02:44→17:16)
[2019-08-07] MEDS: CEFEPIME HCL 2 GM in DEXTROSE 5%-WATER 50 ML IV SCH ×3 (04:31→20:20)
[2019-08-07] MEDS: ACYCLOVIR 700 MG in DEXTROSE 5%-WATER 100 ML IV SCH ×3 (05:46→21:41)
[2019-08-07] MEDS ORDERED: SODIUM CHLORIDE 0.9% 100 ML ONE (05:47)
[2019-08-07] MEDS: DOCUSATE SODIUM 100 MG/10 ML LIQUID UDCUP PEG SCH ×2 (09:00→20:41)
[2019-08-07] MEDS: MULTIVITAMINS WITH MINERALS, THERAPEUTIC 15 ML UDCUP NG SCH (09:00)
[2019-08-07 09:05] LABS: ANION GAP 4 mmol/L (8-16); CALCIUM, TOTAL 8.5 mg/dL (8.8-10.5); CARBON DIOXIDE 33 mmol/L (22-29); CHLORIDE 99 mmol/L (98-107); CREATININE 0.64 mg/dL (0.60-1.30); GLOMERULAR FILTR. RATE CALC > 60 mL/min (>60); GLUCOSE,RANDOM 88 mg/dL (70-110); POTASSIUM 4.1 mmol/L (3.5-5.1); SODIUM SERUM 136 mmol/L (136-145); UREA NITROGEN, BLOOD 12 mg/dL (7-18)
[2019-08-07] MEDS: LANSOPRAZOLE 30 MG SOLUBLE TABLET PEG SCH (09:42)
[2019-08-07] MEDS: AMINO ACIDS/PROTEIN HYDROLYS 30 ML TUBE PO SCH ×2 (09:42→12:19)
[2019-08-07] MEDS: METHADONE HCL 10 MG TABLET PO SCH (09:42)
[2019-08-07] MEDS: ALPRAZolam 1 MG TABLET PO SCH ×2 (09:43→20:54)
[2019-08-07] MEDS: SODIUM CHLORIDE 0.9% 1,000 ML IV SCH ×2 (11:51→23:13)
[2019-08-07] MEDS: ACETAMINOPHEN 325 MG TABLET PO PRN ×2 (16:27→20:40)
[2019-08-07] MEDS: FentaNYL CITRATE PF 500 MCG in DEXTROSE 5%-WATER 90 ML IV PRN (22:13)
[2019-08-08] VITALS (8 sets, daily range): BP systolic 89–145; BP diastolic 45–79
[2019-08-08] MEDS: LORazepam 2 MG TABLET PO SCH ×3 (00:03→16:20)
[2019-08-08] MEDS: HEPARIN SODIUM,PORCINE 5,000 UNITS/ML VIAL SQ SCH ×3 (00:03→16:20)
[2019-08-08] MEDS: VANCOMYCIN HCL 1.25 GM in DEXTROSE 5%-WATER 250 ML IV SCH ×4 (00:03→17:04)
[2019-08-08] MEDS: HYPROMELLOSE 0.5% 15 ML OPHTHALMIC SOLUTION OU SCH ×4 (00:05→16:54)
[2019-08-08] MEDS: METOCLOPRAMIDE HCL 5 MG/ML 2 ML VIAL IVP SCH ×3 (00:06→16:20)
[2019-08-08] MEDS: MetroNIDAZOLE 500 MG/NACL 100 ML IV SCH ×3 (03:09→17:04)
[2019-08-08] MEDS: ACETAMINOPHEN 325 MG TABLET PO PRN ×3 (03:15→16:23)
[2019-08-08] MEDS: CEFEPIME HCL 2 GM in DEXTROSE 5%-WATER 50 ML IV SCH ×3 (04:15→20:42)
[2019-08-08 06:29] LABS: APPEARANCE,URINE CLEAR (CLEAR); BILIRUBIN,URINE NEGATIVE (NEGATIVE); GLUCOSE, URINE (UA) NEGATIVE (NEGATIVE); KETONES,URINE NEGATIVE (NEGATIVE); LEUKOCYTE ESTERASE ,URINE NEGATIVE (NEGATIVE); NITRATE,URINE NEGATIVE (NEGATIVE); OCCULT BLOOD,URINE NEGATIVE (NEGATIVE); PROTEIN,URINE POS 1+ (NEGATIVE); UROBILINOGEN,URINE 0.2 mg/dL (<=1.0)
[2019-08-08 06:36] LABS: BACTERIA,URINE None Seen /HPF (None Seen); CALCIUM OXALATE CRYSTALS,UR Moderate /LPF (None Seen); SQUAMOUS EPITHELIAL CELL,UR None Seen /LPF (None Seen)
[2019-08-08] MEDS: ACYCLOVIR 700 MG in DEXTROSE 5%-WATER 100 ML IV SCH ×3 (06:37→22:36)
[2019-08-08] MEDS: METHADONE HCL 10 MG TABLET PO SCH (08:34)
[2019-08-08] MEDS: MULTIVITAMINS WITH MINERALS, THERAPEUTIC 15 ML UDCUP NG SCH (08:34)
[2019-08-08] MEDS: ALPRAZolam 1 MG TABLET PO SCH ×2 (08:35→20:42)
[2019-08-08] MEDS: DOCUSATE SODIUM 100 MG/10 ML LIQUID UDCUP PEG SCH ×2 (08:36→20:43)
[2019-08-08] MEDS: LANSOPRAZOLE 30 MG SOLUBLE TABLET PEG SCH (08:36)
[2019-08-08] MEDS: AMINO ACIDS/PROTEIN HYDROLYS 30 ML TUBE PO SCH ×2 (08:37→12:18)
[2019-08-08] MEDS: PROPOFOL 1000 MG/ISO-OSM 100 ML IV PRN ×2 (09:18→16:54)
[2019-08-08 11:20] LABS: BASOPHILS % (AUTO) 0.8 % (0.0-2.0); EOSINOPHILS % (AUTO) 5.5 % (1.0-6.0); HEMATOCRIT 35.5 % (41-53); HEMOGLOBIN 11.8 g/dL (13.5-17.5); LYMPHOCYTES # (AUTO) 1.4 K/uL (1.0-4.8); LYMPHOCYTES % (AUTO) 18.6 % (22.0-44.0); MEAN CORPUSCULAR HEMOGLOBIN 31.6 pg (26.0-34.0); MEAN CORPUSCULAR HGB CONC 33.1 G/dL (31.0-37.0); MEAN CORPUSCULAR VOLUME 95 fL (80-100); MONOCYTES # (AUTO) 0.9 K/uL (0.1-1.0); MONOCYTES % (AUTO) 11.4 % (2.0-9.0); NEUTROPHILS # (AUTO) 4.8 K/uL (1.8-7.7); NEUTROPHILS % (AUTO) 63.7 % (40.0-70.0); RED BLOOD CELL COUNT(AUTO) 3.72 MIL/uL (4.50-5.90); RED CELL DISTRIBUTION WIDTH 14.6 % (11.5-14.5)
[2019-08-08 11:43] LABS: ANION GAP 4 mmol/L (8-16); CALCIUM, TOTAL 8.6 mg/dL (8.8-10.5); CARBON DIOXIDE 31 mmol/L (22-29); CHLORIDE 99 mmol/L (98-107); CREATININE 0.62 mg/dL (0.60-1.30); GLOMERULAR FILTR. RATE CALC > 60 mL/min (>60); GLUCOSE,RANDOM 90 mg/dL (70-110); POTASSIUM 4.1 mmol/L (3.5-5.1); SODIUM SERUM 134 mmol/L (136-145); UREA NITROGEN, BLOOD 14 mg/dL (7-18)
[2019-08-08 11:50] LABS: PLATELET COUNT (AUTO) 287 K/uL (150-450)
[2019-08-08] MEDS: SODIUM CHLORIDE 0.9% 1,000 ML IV SCH (13:23)
[2019-08-08 15:49] LABS: C.DIFF GDH ANTIGEN, Stool Negative (Negative); C.DIFF TOXINS A&B, Stool Negative (Negative)
[2019-08-09] VITALS: BP 121/63
[2019-08-09] MEDS: METOCLOPRAMIDE HCL 5 MG/ML 2 ML VIAL IVP SCH ×2 (01:21→08:18)
[2019-08-09] MEDS: LORazepam 2 MG TABLET PO SCH ×4 (01:21→23:57)
[2019-08-09] MEDS: HYPROMELLOSE 0.5% 15 ML OPHTHALMIC SOLUTION OU SCH ×5 (01:22→23:57)
[2019-08-09] MEDS: HEPARIN SODIUM,PORCINE 5,000 UNITS/ML VIAL SQ SCH ×4 (01:22→23:56)
[2019-08-09] MEDS: SODIUM CHLORIDE 0.9% 1,000 ML IV SCH ×2 (01:24→16:39)
[2019-08-09 04:00] VITALS: BP 116/58
[2019-08-09] MEDS ORDERED: SODIUM CHLORIDE 0.9% 100 ML ONE (04:17)
[2019-08-09 05:28] LABS: ALANINE AMINOTRANSFERASE 46 U/L (12-78); ALKALINE PHOSPHATASE 67 U/L (46-116); ANION GAP 8 mmol/L (8-16); ASPARTATE AMINOTRANSFERASE 56 U/L (15-37); BILIRUBIN,TOTAL 0.4 mg/dL (0.1-1.0); CALCIUM, TOTAL 8.5 mg/dL (8.8-10.5); CARBON DIOXIDE 31 mmol/L (22-29); CHLORIDE 95 mmol/L (98-107); CREATININE 0.65 mg/dL (0.60-1.30); GLOMERULAR FILTR. RATE CALC > 60 mL/min (>60); GLUCOSE,RANDOM 89 mg/dL (70-110); POTASSIUM 4.2 mmol/L (3.5-5.1); SODIUM SERUM 134 mmol/L (136-145); TOTAL PROTEIN, SERUM 7.4 g/dL (6.4-8.2); UREA NITROGEN, BLOOD 12 mg/dL (7-18)
[2019-08-09 05:31] LABS: INR 1.7 (0.9-1.1); PROTHROMBIN TIME 17.6 SEC (9.4-11.6)
[2019-08-09] MEDS: ACYCLOVIR 700 MG in DEXTROSE 5%-WATER 100 ML IV SCH ×3 (06:17→21:52)
[2019-08-09 08:00] VITALS: BP 137/100
[2019-08-09] MEDS: MULTIVITAMINS WITH MINERALS, THERAPEUTIC 15 ML UDCUP NG SCH (08:19)
[2019-08-09] MEDS: LANSOPRAZOLE 30 MG SOLUBLE TABLET PEG SCH (08:20)
[2019-08-09] MEDS: ALPRAZolam 1 MG TABLET PO SCH ×2 (08:20→20:51)
[2019-08-09] MEDS: AMINO ACIDS/PROTEIN HYDROLYS 30 ML TUBE PO SCH ×2 (08:21→11:34)
[2019-08-09] MEDS: METHADONE HCL 10 MG TABLET PO SCH (08:21)
[2019-08-09] MEDS: DOCUSATE SODIUM 100 MG/10 ML LIQUID UDCUP PEG SCH ×2 (08:22→21:00)
[2019-08-09] MEDS: ACETAMINOPHEN 325 MG TABLET PO PRN ×2 (08:47→20:53)
[2019-08-09] MEDS ORDERED: SODIUM CHLORIDE 0.9% 250 ML IV ONE (09:47)
[2019-08-09 12:00] VITALS: BP 103/50
[2019-08-09] MEDS ORDERED: GADOBUTROL 1 MMOL/ML 10 ML VIAL IVP ONE (12:38)
[2019-08-09] MEDS: LORazepam 2 MG/ML VIAL IVP PRN (13:06)
[2019-08-09] MEDS ORDERED: INDIUM IN-111 OXYQUINOLINE/.5MCL ISOTOPE 1 EA INJ INJ ONE (15:20)
[2019-08-09] MEDS: FentaNYL CITRATE PF 500 MCG in DEXTROSE 5%-WATER 90 ML IV PRN (15:23)
[2019-08-09 16:00] VITALS: BP 112/46
[2019-08-09 20:00] VITALS: BP 117/54
[2019-08-10] VITALS: BP 91/49
[2019-08-10] MEDS ORDERED: SODIUM CHLORIDE 0.9% 100 ML ONE ×2 (01:52→14:07)
[2019-08-10] MEDS: LORazepam 2 MG/ML VIAL IVP PRN ×2 (03:00→15:00)
[2019-08-10 04:00] VITALS: BP 139/71
[2019-08-10] MEDS ORDERED: SODIUM CHLORIDE 0.9% 500 ML IV ONE (04:39)
[2019-08-10] MEDS: SODIUM CHLORIDE 0.9% 1,000 ML IV SCH ×2 (04:43→17:15)
[2019-08-10 05:06] LABS: BASOPHILS % (AUTO) 0.8 % (0.0-2.0); EOSINOPHILS % (AUTO) 6.4 % (1.0-6.0); HEMATOCRIT 33.1 % (41-53); HEMOGLOBIN 10.8 g/dL (13.5-17.5); LYMPHOCYTES # (AUTO) 2.2 K/uL (1.0-4.8); LYMPHOCYTES % (AUTO) 38.4 % (22.0-44.0); MEAN CORPUSCULAR HGB CONC 32.5 G/dL (31.0-37.0); MEAN CORPUSCULAR VOLUME 95 fL (80-100); MONOCYTES # (AUTO) 0.7 K/uL (0.1-1.0); MONOCYTES % (AUTO) 12.7 % (2.0-9.0); NEUTROPHILS # (AUTO) 2.4 K/uL (1.8-7.7); NEUTROPHILS % (AUTO) 41.7 % (40.0-70.0); PLATELET COUNT (AUTO) 327 K/uL (150-450); RED BLOOD CELL COUNT(AUTO) 3.48 MIL/uL (4.50-5.90); RED CELL DISTRIBUTION WIDTH 14.6 % (11.5-14.5)
[2019-08-10 05:19] LABS: ANION GAP 7 mmol/L (8-16); CALCIUM, TOTAL 8.5 mg/dL (8.8-10.5); CARBON DIOXIDE 31 mmol/L (22-29); CHLORIDE 98 mmol/L (98-107); CREATININE 0.63 mg/dL (0.60-1.30); GLOMERULAR FILTR. RATE CALC > 60 mL/min (>60); GLUCOSE,RANDOM 80 mg/dL (70-110); POTASSIUM 3.4 mmol/L (3.5-5.1); SODIUM SERUM 136 mmol/L (136-145)
[2019-08-10 05:27] LABS: UREA NITROGEN, BLOOD 12 mg/dL (7-18)
[2019-08-10] MEDS: ACYCLOVIR 700 MG in DEXTROSE 5%-WATER 100 ML IV SCH ×3 (06:00→21:31)
[2019-08-10] MEDS: HYPROMELLOSE 0.5% 15 ML OPHTHALMIC SOLUTION OU SCH ×3 (07:10→17:16)
[2019-08-10 08:00] VITALS: BP 99/55
[2019-08-10] MEDS: HEPARIN SODIUM,PORCINE 5,000 UNITS/ML VIAL SQ SCH ×2 (08:24→15:34)
[2019-08-10] MEDS: MULTIVITAMINS WITH MINERALS, THERAPEUTIC 15 ML UDCUP NG SCH (08:24)
[2019-08-10] MEDS: LORazepam 2 MG TABLET PO SCH ×2 (08:24→15:34)
[2019-08-10] MEDS: ALPRAZolam 1 MG TABLET PO SCH ×2 (08:25→21:29)
[2019-08-10] MEDS: LANSOPRAZOLE 30 MG SOLUBLE TABLET PEG SCH (08:26)
[2019-08-10] MEDS: METHADONE HCL 10 MG TABLET PO SCH (08:26)
[2019-08-10] MEDS: AMINO ACIDS/PROTEIN HYDROLYS 30 ML TUBE PO SCH (08:27)
[2019-08-10] MEDS: DOCUSATE SODIUM 100 MG/10 ML LIQUID UDCUP PEG SCH ×2 (08:28→21:00)
[2019-08-10] MEDS ORDERED: LIDOCAINE/PF 1% 5 ML VIAL ONE (10:57)
[2019-08-10 12:00] VITALS: BP 103/71
[2019-08-10 12:40] LABS: INR 1.1 (0.9-1.1); PROTHROMBIN TIME 11.4 SEC (9.4-11.6)
[2019-08-10] MEDS ORDERED: IOVERSOL 350 MG/ML 100 ML VIAL ONE (14:07)
[2019-08-10 16:00] VITALS: BP 107/61
[2019-08-10] MEDS: PROPOFOL 1000 MG/ISO-OSM 100 ML IV PRN (17:14)
[2019-08-10 20:00] VITALS: BP 101/50
[2019-08-10 21:11] LABS: BASOPHILS % (AUTO) 0.6 % (0.0-2.0); EOSINOPHILS % (AUTO) 6.1 % (1.0-6.0); HEMATOCRIT 33.4 % (41-53); HEMOGLOBIN 10.9 g/dL (13.5-17.5); LYMPHOCYTES # (AUTO) 2.3 K/uL (1.0-4.8); LYMPHOCYTES % (AUTO) 34.2 % (22.0-44.0); MEAN CORPUSCULAR HEMOGLOBIN 31.1 pg (26.0-34.0); MEAN CORPUSCULAR HGB CONC 32.6 G/dL (31.0-37.0); MEAN CORPUSCULAR VOLUME 96 fL (80-100); MONOCYTES # (AUTO) 0.7 K/uL (0.1-1.0); MONOCYTES % (AUTO) 10.4 % (2.0-9.0); NEUTROPHILS # (AUTO) 3.3 K/uL (1.8-7.7); NEUTROPHILS % (AUTO) 48.7 % (40.0-70.0); PLATELET COUNT (AUTO) 330 K/uL (150-450); RED BLOOD CELL COUNT(AUTO) 3.49 MIL/uL (4.50-5.90); RED CELL DISTRIBUTION WIDTH 14.5 % (11.5-14.5)
[2019-08-11] VITALS (7 sets, daily range): BP systolic 105–147; BP diastolic 64–79
[2019-08-11] MEDS: LORazepam 2 MG TABLET PO SCH ×3 (00:05→16:49)
[2019-08-11] MEDS: HEPARIN SODIUM,PORCINE 5,000 UNITS/ML VIAL SQ SCH ×3 (00:05→16:00)
[2019-08-11] MEDS: HYPROMELLOSE 0.5% 15 ML OPHTHALMIC SOLUTION OU SCH ×4 (00:06→18:16)
[2019-08-11] MEDS ORDERED: SODIUM CHLORIDE 0.9% 500 ML IV ONE ×3 (03:44→21:40)
[2019-08-11 04:47] LABS: HEMATOCRIT 33.9 % (41-53); HEMOGLOBIN 10.9 g/dL (13.5-17.5); MEAN CORPUSCULAR HEMOGLOBIN 30.4 pg (26.0-34.0); MEAN CORPUSCULAR HGB CONC 32.1 G/dL (31.0-37.0); MEAN CORPUSCULAR VOLUME 95 fL (80-100); PLATELET COUNT (AUTO) 336 K/uL (150-450); RED BLOOD CELL COUNT(AUTO) 3.58 MIL/uL (4.50-5.90); RED CELL DISTRIBUTION WIDTH 14.6 % (11.5-14.5)
[2019-08-11 04:57] LABS: ANION GAP 5 mmol/L (8-16); CALCIUM, TOTAL 8.6 mg/dL (8.8-10.5); CARBON DIOXIDE 30 mmol/L (22-29); CHLORIDE 100 mmol/L (98-107); CREATININE 0.58 mg/dL (0.60-1.30); GLOMERULAR FILTR. RATE CALC > 60 mL/min (>60); GLUCOSE,RANDOM 93 mg/dL (70-110); POTASSIUM 3.1 mmol/L (3.5-5.1); SODIUM SERUM 135 mmol/L (136-145)
[2019-08-11 05:17] LABS: UREA NITROGEN, BLOOD 10 mg/dL (7-18)
[2019-08-11] MEDS: ACYCLOVIR 700 MG in DEXTROSE 5%-WATER 100 ML IV SCH ×3 (06:59→22:32)
[2019-08-11] MEDS: SODIUM CHLORIDE 0.9% 1,000 ML IV SCH ×2 (07:06→21:10)
[2019-08-11 07:31] LABS: BASOPHILS % (AUTO) 0.4 % (0.0-2.0); EOSINOPHILS % (AUTO) 6.5 % (1.0-6.0); LYMPHOCYTES # (AUTO) 2.2 K/uL (1.0-4.8); LYMPHOCYTES % (AUTO) 34.1 % (22.0-44.0); MONOCYTES # (AUTO) 0.6 K/uL (0.1-1.0); MONOCYTES % (AUTO) 9.2 % (2.0-9.0); NEUTROPHILS # (AUTO) 3.2 K/uL (1.8-7.7); NEUTROPHILS % (AUTO) 49.8 % (40.0-70.0)
[2019-08-11] MEDS: LANSOPRAZOLE 30 MG SOLUBLE TABLET PEG SCH (09:02)
[2019-08-11] MEDS: DOCUSATE SODIUM 100 MG/10 ML LIQUID UDCUP PEG SCH ×2 (09:03→22:32)
[2019-08-11] MEDS: METHADONE HCL 10 MG TABLET PO SCH (09:13)
[2019-08-11] MEDS: MULTIVITAMINS WITH MINERALS, THERAPEUTIC 15 ML UDCUP NG SCH (09:13)
[2019-08-11] MEDS: ALPRAZolam 1 MG TABLET PO SCH ×2 (09:13→22:51)
[2019-08-11] MEDS ORDERED: GADOBUTROL 1 MMOL/ML 10 ML VIAL IVP ONE (12:02)
[2019-08-11] MEDS: POTASSIUM CHL 10 MEQ/WATER 50 ML IV PRN ×3 (15:53→21:15)
[2019-08-11] MEDS: ACETAMINOPHEN 325 MG TABLET PO PRN (16:49)
[2019-08-11] MEDS: LORazepam 2 MG/ML VIAL IVP PRN (18:45)
[2019-08-12] MEDS: HEPARIN SODIUM,PORCINE 5,000 UNITS/ML VIAL SQ SCH ×4 (01:09→23:12)
[2019-08-12] MEDS: LORazepam 2 MG TABLET PO SCH ×4 (01:09→23:12)
[2019-08-12] MEDS: HYPROMELLOSE 0.5% 15 ML OPHTHALMIC SOLUTION OU SCH ×5 (02:09→23:12)
[2019-08-12] MEDS: LORazepam 2 MG/ML VIAL IVP PRN ×2 (04:25→15:00)
[2019-08-12 04:44] VITALS: BP 136/70
[2019-08-12] MEDS: ACYCLOVIR 700 MG in DEXTROSE 5%-WATER 100 ML IV SCH ×3 (05:49→20:16)
[2019-08-12 06:54] LABS: ANION GAP 6 mmol/L (8-16); CALCIUM, TOTAL 8.7 mg/dL (8.8-10.5); CARBON DIOXIDE 30 mmol/L (22-29); CHLORIDE 101 mmol/L (98-107); CREATININE 0.77 mg/dL (0.60-1.30); GLOMERULAR FILTR. RATE CALC > 60 mL/min (>60); GLUCOSE,RANDOM 88 mg/dL (70-110); POTASSIUM 3.6 mmol/L (3.5-5.1); SODIUM SERUM 137 mmol/L (136-145); UREA NITROGEN, BLOOD 11 mg/dL (7-18)
[2019-08-12 07:00] VITALS: BP 128/70
[2019-08-12] MEDS: DOCUSATE SODIUM 100 MG/10 ML LIQUID UDCUP PEG SCH ×2 (08:47→20:15)
[2019-08-12] MEDS: LANSOPRAZOLE 30 MG SOLUBLE TABLET PEG SCH (08:47)
[2019-08-12] MEDS: METHADONE HCL 10 MG TABLET PO SCH (08:48)
[2019-08-12] MEDS: ALPRAZolam 1 MG TABLET PO SCH ×2 (08:48→20:16)
[2019-08-12] MEDS: MULTIVITAMINS WITH MINERALS, THERAPEUTIC 15 ML UDCUP NG SCH (08:49)
[2019-08-12] MEDS: SODIUM CHLORIDE 0.9% 1,000 ML IV SCH (08:49)
[2019-08-12 11:15] VITALS: BP 117/67
[2019-08-12 17:02] VITALS: BP 126/78
[2019-08-12 19:27] VITALS: BP 127/71
[2019-08-12 23:35] VITALS: BP 136/74
[2019-08-13] MEDS: LORazepam 2 MG/ML VIAL IVP PRN ×3 (02:09→09:38)
[2019-08-13 04:33] VITALS: BP 126/62
[2019-08-13] MEDS: ACYCLOVIR 700 MG in DEXTROSE 5%-WATER 100 ML IV SCH ×2 (05:09→13:37)
[2019-08-13] MEDS: HYPROMELLOSE 0.5% 15 ML OPHTHALMIC SOLUTION OU SCH ×2 (05:09→13:37)
[2019-08-13 07:40] VITALS: BP 135/78
[2019-08-13] MEDS: HEPARIN SODIUM,PORCINE 5,000 UNITS/ML VIAL SQ SCH (07:49)
[2019-08-13] MEDS: MULTIVITAMINS WITH MINERALS, THERAPEUTIC 15 ML UDCUP NG SCH (07:49)
[2019-08-13] MEDS: DOCUSATE SODIUM 100 MG/10 ML LIQUID UDCUP PEG SCH (07:49)
[2019-08-13] MEDS: LORazepam 2 MG TABLET PO SCH (07:49)
[2019-08-13] MEDS: LANSOPRAZOLE 30 MG SOLUBLE TABLET PEG SCH (07:50)
[2019-08-13] MEDS: METHADONE HCL 10 MG TABLET PO SCH (07:50)
[2019-08-13] MEDS: ALPRAZolam 1 MG TABLET PO SCH (07:50)
[2019-08-13] MEDS ORDERED: ACYC200C IV (11:36)
[2019-08-13] MEDS ORDERED: ALPR1TAB7 PO (11:36)
[2019-08-13] MEDS ORDERED: HEPA500018 SQ (11:37)
[2019-08-13] MEDS ORDERED: DSS100 PO (11:37)
[2019-08-13] MEDS ORDERED: HYPR15DR23 OU (11:39)
[2019-08-13] MEDS ORDERED: LANS30 PO (11:40)
[2019-08-13] MEDS ORDERED: LORA2TAB2 PO (11:41)
[2019-08-13] MEDS ORDERED: METH10 PO (11:42)
[2019-08-13] MEDS ORDERED: ACET-784 PO (11:49)
[2019-08-13] MEDS ORDERED: A20IH1 IH (11:50)
[2019-08-13] MEDS ORDERED: BISA10SU11 PR (11:50)
[2019-08-13] MEDS ORDERED: IPRNEB IH (11:51)
[2019-08-13] MEDS ORDERED: MOM30 PO (11:54)
[2019-08-13] MEDS ORDERED: LORA2TAB2 IVP (11:54)
[2019-08-13 12:10] VITALS: BP 132/73
== END 2019-08-13 14:00 | DRG 5 ==
LOC: EMS 03:06 → ICU 05:27 → 5N 08-11 19:30
PROVIDERS: ADMIT Internal Medicine; ATTEND Internal Medicine
PROC: 5A1955Z Respiratory Ventilation, Greater than 96 Consecutive Hours (ICD-10-PCS; principal; 2019-07-18)
PROC: 0BH17EZ Insertion of Endotracheal Airway into Trachea, Via Natural or Artificial Opening (ICD-10-PCS; 2019-07-18)
PROC: 0BD38ZX Extraction of Right Main Bronchus, Via Natural or Artificial Opening Endoscopic, Diagnostic (ICD-10-PCS; 2019-07-18)
PROC: 0B9F8ZX Drainage of Right Lower Lung Lobe, Via Natural or Artificial Opening Endoscopic, Diagnostic (ICD-10-PCS; 2019-07-18)
PROC: 04HK33Z Insertion of Infusion Device into Right Femoral Artery, Percutaneous Approach (ICD-10-PCS; 2019-07-18)
PROC: 06HY33Z Insertion of Infusion Device into Lower Vein, Percutaneous Approach (ICD-10-PCS; 2019-07-18)
PROC: 05HY33Z Insertion of Infusion Device into Upper Vein, Percutaneous Approach (ICD-10-PCS; 2019-07-23)
PROC: 0B110F4 Bypass Trachea to Cutaneous with Tracheostomy Device, Open Approach (ICD-10-PCS; 2019-08-02)
PROC: 0DH63UZ Insertion of Feeding Device into Stomach, Percutaneous Approach (ICD-10-PCS; 2019-08-03)
PROC: 3E0G76Z Introduction of Nutritional Substance into Upper GI, Via Natural or Artificial Opening (ICD-10-PCS; 2019-08-03)
PROC: 009U3ZX Drainage of Spinal Canal, Percutaneous Approach, Diagnostic (ICD-10-PCS; 2019-08-10)
PROC: 05HY33Z Insertion of Infusion Device into Upper Vein, Percutaneous Approach (ICD-10-PCS; 2019-08-13)
DX: T40.1X1A Poisoning by heroin, accidental (unintentional), initial encounter (principal); R65.21 Severe sepsis with septic shock; J69.0 Pneumonitis due to inhalation of food and vomit; G92 Toxic encephalopathy; G93.1 Anoxic brain damage, not elsewhere classified; E43 Unspecified severe protein-calorie malnutrition; K26.9 Duodenal ulcer, unspecified as acute or chronic, without hemorrhage or perforation; N17.9 Acute kidney failure, unspecified; K66.8 Other specified disorders of peritoneum; J98.2 Interstitial emphysema; E87.5 Hyperkalemia; J96.00 Acute respiratory failure, unspecified whether with hypoxia or hypercapnia; J32.4 Chronic pansinusitis; B19.20 Unspecified viral hepatitis C without hepatic coma; F11.10 Opioid abuse, uncomplicated; F15.10 Other stimulant abuse, uncomplicated; H70.90 Unspecified mastoiditis, unspecified ear; J40 Bronchitis, not specified as acute or chronic; K44.9 Diaphragmatic hernia without obstruction or gangrene; L03.90 Cellulitis, unspecified; R13.10 Dysphagia, unspecified; T43.595A Adverse effect of other antipsychotics and neuroleptics, initial encounter; X58.XXXA Exposure to other specified factors, initial encounter; Z78.1 Physical restraint status; Z79.01 Long term (current) use of anticoagulants; Z87.820 Personal history of traumatic brain injury; Z99.11 Dependence on respirator [ventilator] status; Y93.89 Activity, other specified; Y92.89 Other specified places as the place of occurrence of the external cause; Y99.8 Other external cause status
CPT/HCPCS: 31624; 36569; 36600; 70450; 70491; 70553; 71260; 72141; 72146; 72158; 72193; 74160; 74176; 76881; 78806; 82805; 83605; 83735; 84100; 84132; 84145; 85007; 86803; 87015; 87040; 87070; 87081; 87101; 87205; 87206; 87210; 87220; 87252; 87324; 87340; 87389; 87449; 87529; 87804; 88108; 88312; 93005; 93306; 93308; 93926; 93970; 94002; 94003; 94640; 95816; 99291; A9547; A9585; G0378; G0480; G0481; J0133; J0171; J0330; J0637; J0692; J1265; J1630; J1644; J1956; J2001; J2060; J2185; J2250; J2310; J2543; J2704; J2765; J3010; J3370; J3475; J3480; J3490; J7030; J7040; J7050; J7060